=== PATIENT | female | born 1950 | race Caucasian/White ===

== ENCOUNTER 2018-06-29 11:58 | Inpatient (IN) | payer MEDICARE ==
[~2018-06-29] VITALS: Ht 157.5 cm; Wt 71.8 kg
[~2018-06-29 11:58] MED LIST: CALC500T30 PO; CHOL100013 PO; CHOL500016 PO; CRESTOR10 MG PO; LEVO200T5 PO; MULT-658 PO
[2018-06-29] MEDS ORDERED: IV NORMAL SALINE 1,000ML 1,000 ML IV ONE (12:30)
--- NOTE | 2018-06-29 12:44 | PHYS DOC ---
Past History Past Medical History: Dementia, High Cholesterol, Hypothyroid Past Medical History Limited due to dementia Past Surgical History: No Surgical History Past Surgical History Limited due to dementia Smoking: Quit Greater Than 1 Year Alcohol Use: None Drug Use: None Social History Limited due to dementia Adult General Chief Complaint Chief Complaint: FATIGUE HPI HPI Patient is a 68-year-old female who presents to the emergency department with her daughter complaining of feeling tired. According to the patient's daughter, the patient has been having trouble "getting around" and appears to be more tired than usual. The daughter states that she noticed her mother being more fatigued starting yesterday, and today she noticed that she was having difficulty walking. The daughter states that her mother was recently diagnosed with a UTI and had just finished the prescribed antibiotic. Patient states that she is not in any pain. According to the daughter the patient has dementia. She also states that she has hypothyroidism for which she is being treated. Historian was predominantly the daughter. HPI limited due to dementia. Review of Systems Review of Systems Constitutional: Denies fever or chills. Complains of fatigue [] Respiratory: Denies cough or shortness of breath [] Cardiovascular: Denies chest pain and palpitations[] Neurologic: Denies headache, focal weakness or sensory changes; Reports generalized weakness. ROS limited due to dementia. Current Medications Current Medications Current Medications Medications (Trade) Dose Ordered Sig/Nate Start Time Stop Time Status Last Admin Dose Admin Sodium Chloride 1,000 ml @ 1,000 mls/hr 1X ONCE 06/29/18 12:30 06/29/18 13:29 Allergies Allergies Allergies Coded Allergies Type Severity Reaction Last Updated Verified No Known Drug Allergies 06/21/15 No Physical Exam Physical Exam Constitutional: Well developed, well nourished, no acute distress, non-toxic appearance. [] HENT: Normocephalic, atraumatic, oropharynx moist Eyes: PERRL, EOMI. [] Neck: Normal range of motion, no tenderness, supple, no meningeal signs Cardiovascular: Heart rate regular rhythm Lungs & Thorax: Bilateral breath sounds clear to auscultation [] Abdomen: Soft, no tenderness Skin: Warm, dry, no erythema, no rash. [] Extremities: No tenderness, ROM intact, no edema. [] Neurologic: Alert, confused, normal motor function, normal sensory function, no focal deficits noted. [] EKG EKG Sinus tachycardia at 104bpm, Low voltage QRS, No ST elevation. Radiology/Procedures Radiology/Procedures PROCEDURE: CHEST PA & LATERAL Chest, 2 views, 06/29/2018: HISTORY: Dizziness The heart size is normal. There is calcific plaquing of the aorta. The pulmonary vascularity is within normal limits. No pulmonary infiltrate is seen. There is no evidence of pleural fluid. There is a mild thoracolumbar scoliosis. IMPRESSION: No acute cardiopulmonary abnormality is detected. PROCEDURE: CT HEAD WO CONTRAST CT of the head without contrast, 06/29/2018: HISTORY: Dizziness, unsteady gait There is moderate cerebral atrophy. The ventricles are within normal limits in size. There is no shift of the midline structures. There is no evidence of acute intracranial hemorrhage or mass effect. IMPRESSION: 1. Cerebral atrophy. 2. No acute intracranial abnormality is detected. Course & Med Decision Making Course & Med Decision Making Pertinent Labs and Imaging studies reviewed. (See chart for details) Patient with past medical history of dementia presents with her daughter with concern for generalized weakness and fatigue. Daughter reports patient is recently getting over a UTI and has finished course of antibiotic therapy. No history of known trauma. Patient appears at her baseline. Patient able to move all extremities. No focal deficit appreciated. Labs obtained and posted to chart. Hyponatremia and renal insufficiency appreciated. IV fluid hydration provided. Ct head without acute process. CXR clear. Patient requiring admission for further evaluation and treatment. Discussed with Dr. Willis (hospitalist) who is in agreement with admission. Discussed findings and plan with patient and family, who acknowledge understanding and agreement. Dragon Disclaimer Dragon Disclaimer This electronic medical record was generated, in whole or in part, using a voice recognition dictation system. Departure Departure: Impression: Primary Impression: Generalized weakness Additional Impressions: Hyponatremia Acute renal insufficiency Disposition: ADMITTED INPATIENT (tele) Admitting Physician: Shruthi Willis Condition: STABLE Referrals: LUZ ELENA GARCIA APRN (PCP) Problem Qualifiers HEBERT MCGRATH DO Jun 29, 2018 12:44
[2018-06-29 13:01] LABS: BASO % 0 % (0-3); EOS % 0 % (0-3); HEMATOCRIT 43.5 % (36.0-47.0); HEMOGLOBIN 15.2 g/dL (12.0-15.5); LYMPH # 1.1 x10^3/uL (1.0-4.8); LYMPH % 15 % (24-48); MEAN CORPUSCULAR HEMOGLOBIN 31 pg (25-35); MEAN CORPUSCULAR HGB CONC 35 g/dL (31-37); MEAN CORPUSCULAR VOLUME 88 fL (79-100); MONO # 0.3 x10^3/uL (0.0-1.1); MONO % 4 % (0-9); NEUT # 6.4 x10^3uL (1.8-7.7); NEUT % 81 % (31-73); PLATELET COUNT 192 x10^3/uL (140-400); RED BLOOD COUNT 4.97 x10^6/uL (3.50-5.40); RED CELL DISTRIBUTION WIDTH 14.2 % (11.5-14.5); WHITE BLOOD COUNT 7.9 x10^3/uL (4.0-11.0)
--- NOTE | 2018-06-29 13:17 | EKG ---
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
[2018-06-29 13:26] LABS: MAGNESIUM 2.1 mg/dL (1.8-2.4)
--- NOTE | 2018-06-29 13:28 | RAD ---
CT of the head without contrast, 06/29/2018: HISTORY: Dizziness, unsteady gait There is moderate cerebral atrophy. The ventricles are within normal limits in size. There is no shift of the midline structures. There is no evidence of acute intracranial hemorrhage or mass effect. IMPRESSION: 1. Cerebral atrophy. 2. No acute intracranial abnormality is detected. Electronically signed by: Alexander Nolan MD (06/29/2018 1:24 PM) [facility]
--- NOTE | 2018-06-29 13:34 | RAD ---
Chest, 2 views, 06/29/2018: HISTORY: Dizziness The heart size is normal. There is calcific plaquing of the aorta. The pulmonary vascularity is within normal limits. No pulmonary infiltrate is seen. There is no evidence of pleural fluid. There is a mild thoracolumbar scoliosis. IMPRESSION: No acute cardiopulmonary abnormality is detected. Electronically signed by: Alexander Nolan MD (06/29/2018 1:31 PM) [facility]
[2018-06-29 14:26] LABS: ALBUMIN 3.7 g/dL (3.4-5.0); ALBUMIN/GLOBULIN RATIO 0.8 (1.0-1.7); CALCIUM 9.1 mg/dL (8.5-10.1); CREATININE 1.6 mg/dL (0.6-1.0); GFR 32.2; POTASSIUM 4.3 mmol/L (3.5-5.1); TOTAL BILIRUBIN 0.3 mg/dL (0.2-1.0); TOTAL PROTEIN 8.2 g/dL (6.4-8.2)
[2018-06-29 15:46] LABS: COLOR,URINE STRAW
[2018-06-29 15:47] LABS: BACTERIA,URINE 0 /HPF (0-FEW); BILIRUBIN,URINE NEG (NEG); CLARITY,URINE CLEAR; GLUCOSE,URINE NEG (NEG); HYALINE CASTS, URINE MANY /HPF; NITRITE,URINE NEG (NEG); RBC,URINE OCC /HPF (0-2); SQUAMOUS EPITHELIAL CELL,UR FEW /LPF; UROBILINOGEN,URINE 0.2 mg/dL (0.2 mg/dL)
[2018-06-29] MEDS: IV NORMAL SALINE 1,000ML 1,000 ML IV SCH (16:04)
[2018-06-29] MEDS ORDERED: MEMA1CAP3 PO (16:37)
[2018-06-29 21:00] VITALS: BP 116/72
[2018-06-29] MEDS: MEMANTINE 10 MG TABLET. PO SCH (22:31)
[2018-06-29] MEDS: ATORVASTATIN CALCIUM 20 MG TABLET PO SCH (22:31)
[2018-06-29] MEDS: DONEPEZIL HCL 10 MG TABLET PO SCH (22:31)
[2018-06-29 23:14] VITALS: BP 96/65
[2018-06-30] MEDS: LEVOTHYROXINE 100 MCG TABLET PO SCH (05:44)
[2018-06-30] MEDS: IV NORMAL SALINE 1,000ML 1,000 ML IV SCH ×3 (05:44→22:06)
[2018-06-30 06:04] LABS: BASO % 1 % (0-3); EOS % 0 % (0-3); HEMATOCRIT 40.1 % (36.0-47.0); HEMOGLOBIN 13.6 g/dL (12.0-15.5); LYMPH # 1.1 x10^3/uL (1.0-4.8); LYMPH % 20 % (24-48); MEAN CORPUSCULAR HEMOGLOBIN 30 pg (25-35); MEAN CORPUSCULAR HGB CONC 34 g/dL (31-37); MEAN CORPUSCULAR VOLUME 89 fL (79-100); MONO # 0.4 x10^3/uL (0.0-1.1); MONO % 7 % (0-9); NEUT # 4.1 x10^3uL (1.8-7.7); NEUT % 73 % (31-73); PLATELET COUNT 159 x10^3/uL (140-400); RED BLOOD COUNT 4.52 x10^6/uL (3.50-5.40); RED CELL DISTRIBUTION WIDTH 14.1 % (11.5-14.5); WHITE BLOOD COUNT 5.6 x10^3/uL (4.0-11.0)
[2018-06-30 06:09] LABS: CALCIUM 8.3 mg/dL (8.5-10.1); GFR 55.5; POTASSIUM 3.9 mmol/L (3.5-5.1)
[2018-06-30 06:46] VITALS: BP 110/65
[2018-06-30] MEDS: CALCIUM CARBONATE 500 MG TABLET PO SCH (09:51)
[2018-06-30] MEDS: MEMANTINE 10 MG TABLET. PO SCH ×2 (09:51→20:07)
[2018-06-30 10:34] VITALS: BP 107/73
--- NOTE | 2018-06-30 14:04 | HP ---
ADMIT DATE: 06/29/2018 HISTORY OF PRESENT ILLNESS: The patient is a very 68-year-old female patient who was brought to the Emergency Room by her daughter, with her daughter complaining of feeling tired. According to the patient's daughter, the patient has been having trouble getting around and appears to be more tired than usual. She noted that her mother is more fatigued, normally she is able to walk and usually takes her with her to the shopping, but yesterday she was having difficulty walking. She apparently was recently diagnosed with a UTI and was treated with a course of Bactrim-DS and finished the course of treatment. She is not taking any pain medication. She is known to have dementia and she is known to have hypothyroidism for which she is on Synthroid. The patient herself is very demented and does not give any useful information. She was investigated in the Emergency Room and was found to have hyponatremia. Her sodium was 129. She was also somewhat dehydrated. Her creatinine was 1.6 and therefore, she was admitted and started on IV fluid. PAST MEDICAL HISTORY: Significant for hypothyroidism, hyperlipidemia and dementia. PAST SURGICAL HISTORY: Significant for appendectomy as well as colonoscopy. ALLERGIES: She has no known drug allergies. MEDICATIONS: She is currently on following medications: She is on Crestor 10 mg at bedtime. She is on Namzaric 28/10 mg at bedtime, calcium carbonate 500 mg 3 times a day, levothyroxine 200 mcg daily. She is on vitamin D 5000 units once a day, multivitamin, mineral 1 tablet once a day. FAMILY HISTORY: She is the only child, has no brothers or sisters. Both parents are . SOCIAL HISTORY: She is , has 2 daughters. She quit smoking 10 years ago. She drinks a glass of wine once a week. 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 REVIEW OF SYSTEMS: As per history of present illness. PHYSICAL EXAMINATION: GENERAL: On arrival to the Emergency Room, the patient was clearly demented, but without any pallor, jaundice or cyanosis. No lymphadenopathy, no thyromegaly. No jugular venous distension. No lower limb edema. VITAL SIGNS: Her heart rate on arrival showed was 102, blood pressure was 116/72, temperature was 99.5, respiratory rate was 18 and oxygen saturation was 97%. HEENT: Showed normocephalic, atraumatic. NECK: Supple. HEART: Showed normal first and second heart sounds with no gallop, rub or murmur. CHEST: Clear to auscultation. No crepitation or rhonchi. ABDOMEN: Distended, soft, nontender. No guarding or rigidity. No organomegaly. Hernial orifice intact. Bowel sounds normal. NEUROLOGIC: She is demented without any obvious lateralizing sign. All cranial nerves intact. EXTREMITIES: She moves extremities without difficulty. She ambulates without assistance or assistive devices. LABORATORY DATA: On arrival showed a white cell count of 7900, hemoglobin 15, hematocrit 44, MCV 88 and platelet count of 192,000 with normal manual differential. Her chemistry showed a serum sodium of 129, potassium 4.3, chloride 95, bicarbonate 22, anion gap of 12, BUN 15, creatinine 1.6, estimated GFR was 32 mL per minute. Her glucose was 134, calcium was 9.1. Total bilirubin and alkaline phosphatase normal. AST and ALT are slightly elevated. Her ammonia was 10, lactic acid was 1.6. Her magnesium was 2.1. Her total protein was 8.2, albumin was 3.7. ASSESSMENT AND PLAN: The patient is admitted and started on IV fluid in the form of normal saline. We continued her all other medication and I ordered TSH as well as morning cortisol. FINAL ADMISSION DIAGNOSES: Hyponatremia, acute kidney injury, hypothyroidism, hyperlipidemia and dementia. COBY AMES MD DR: FLOR/lamont JOB#: [id number] / [id number]
[2018-06-30 15:27] VITALS: BP 109/74
[2018-06-30] MEDS: ATORVASTATIN CALCIUM 20 MG TABLET PO SCH (20:07)
[2018-06-30] MEDS: DONEPEZIL HCL 10 MG TABLET PO SCH (20:07)
[2018-06-30 20:50] VITALS: BP 127/81
--- NOTE | 2018-06-30 22:35 | PN ---
DATE: 06/30/2018 SUBJECTIVE: The patient is sitting comfortably in her chair, eating her lunch, in no apparent distress. According to her daughter and , she is definitely more awake, alert today and responsive. OBJECTIVE: GENERAL: When I examined her, she looked well and was clearly in no apparent respiratory distress. No pallor, jaundice, cyanosis, or thyromegaly. No jugular venous distension. No limb edema. VITAL SIGNS: Her heart rate was 97, blood pressure was 107/73, temperature was 99.7, respiratory rate was 20, and oxygen saturation was 94%. HEAD, EYES, EARS, NOSE AND THROAT: Showed normocephalic, atraumatic. NECK: Supple. HEART: Showed normal first and second sounds. No gallop, rub or murmur. CHEST: Clear to auscultation. No crepitation or rhonchi. ABDOMEN: Distended, soft, nontender. No guarding or rigidity. No organomegaly. Hernial orifices intact. Bowel sounds normal. NEUROLOGIC: She is demented, but without any obvious lateralizing sign. All cranial nerves intact. She moves extremities without difficulty. She was able to walk to the bathroom today. Her intake was 2259, no output was recorded. LABORATORY DATA: Her lab work this morning showed a white cell count 5600, hemoglobin 13.6, hematocrit 40, MCV 89 and platelet count of 159,000. Her chemistry showed that her serum sodium is slightly low at 131 mEq/L, potassium 3.9, chloride 101, bicarbonate 21, anion gap of 9, BUN 12, creatinine 1, estimated GFR was 55 mL per minute. Her glucose 105 and calcium was 8.3. Her white cell count was 5000. Her urinalysis was essentially unremarkable. The urine was negative for nitrite and leukocyte esterase with only 1-4 WBCs. She has already been treated with a course of Bactrim-DS. My plan is to continue with IV. ASSESSMENT: Marked weakness and tiredness. The patient was found to have hyponatremia and acute kidney injury, creatinine is 1.6. Hypothyroidism, hyperlipidemia, and dementia. PLAN: My plan is to await the results of her TSH as well as her morning cortisol. I will repeat her labs again tomorrow and we will decide on further management. COBY AMES MD DR: FLOR/lamont JOB#: [id number] / [id number]
[2018-07-01 01:44] VITALS: BP 124/72
[2018-07-01 05:40] VITALS: BP 117/77
[2018-07-01] MEDS: LEVOTHYROXINE 100 MCG TABLET PO SCH (05:43)
[2018-07-01 07:02] LABS: CALCIUM 8.4 mg/dL (8.5-10.1); CREATININE 0.8 mg/dL (0.6-1.0); GFR 71.8; POTASSIUM 3.8 mmol/L (3.5-5.1)
[2018-07-01] MEDS: MEMANTINE 10 MG TABLET. PO SCH ×2 (08:54→20:53)
[2018-07-01] MEDS: CALCIUM CARBONATE 500 MG TABLET PO SCH (08:54)
[2018-07-01 10:58] VITALS: BP 105/70
[2018-07-01] MEDS: IV NORMAL SALINE 1,000ML 1,000 ML IV SCH ×2 (11:20→18:04)
--- NOTE | 2018-07-01 14:43 | PDOC ---
SUBJECTIVE: I find the patient sitting up in bed with her spouse at bedside. She is awake and alert but not very verbal. From what I can gather in the chart her cognition does appear to be improved today as she is able to answer questions appropriately. She has not been active only walking back and forth to the toilet. Her tends to answer questions for her and talk over her. She denies any physical complaints however when asked about her mood and possible depression she responded affirmatively. Her vital signs remained stable and labs are normalizing however she does appear to be and admits to some depressed mood. OBJECTIVE: Problems: Problems Medical Problems: (1) Acute renal insufficiency Status: Acute (2) Generalized weakness Status: Acute (3) Hyponatremia Status: Acute Renal function improved with IV fluids B UN is 8 creatinine 0.8. Corrected calcium is 8.96, a.m. cortisol 22.9 TSH 1.374 Vital Signs: Vital Signs Date Time Temp Pulse Resp B/P (MAP) Pulse Ox O2 Delivery O2 Flow Rate FiO2 07/01/18 10:58 98.3 79 20 105/70 (82) 97 Room Air I & O Intake and Output 07/01/18 07:00 Intake Total 1491.54 ml Balance 1491.54 ml Intake Oral 680 ml IV Total 811.54 ml # Voids 4 # Bowel Movements 1 Labs: Laboratory Tests Test 06/29/18 15:05 06/30/18 05:38 07/01/18 06:33 Urine Collection Type U cath Urine Color Straw Urine Clarity Clear Urine pH 5.5 Urine Specific [place] 1.025 Urine Protein 30 mg/dl (NEG-TRACE) Urine Glucose (UA) Neg mg/dL (NEG) Urine Ketones (Stick) Neg mg/dL (NEG) Urine Blood Neg (NEG) Urine Nitrite Neg (NEG) Urine Bilirubin Neg (NEG) Urine Urobilinogen Dipstick 0.2 mg/dL (0.2 mg/dL) Urine Leukocyte Esterase Neg (NEG) Urine RBC Occ /HPF (0-2) Urine WBC 1-4 /HPF (0-4) Urine Squamous Epithelial Cells Few /LPF Urine Bacteria 0 /HPF (0-FEW) Urine Hyaline Casts Many /HPF Urine Mucus Marked /LPF Urine Random Sodium <60 mmol/L (Not Estab.) White Blood Count 5.6 x10^3/uL (4.0-11.0) Red Blood Count 4.52 x10^6/uL (3.50-5.40) Hemoglobin 13.6 g/dL (12.0-15.5) Hematocrit 40.1 % (36.0-47.0) Mean Corpuscular Volume 89 fL (79-100) Mean Corpuscular Hemoglobin 30 pg (25-35) Mean Corpuscular Hemoglobin Concent 34 g/dL (31-37) Red Cell Distribution Width 14.1 % (11.5-14.5) Platelet Count 159 x10^3/uL (140-400) Neutrophils (%) (Auto) 73 % (31-73) Lymphocytes (%) (Auto) 20 % (24-48) Monocytes (%) (Auto) 7 % (0-9) Eosinophils (%) (Auto) 0 % (0-3) Basophils (%) (Auto) 1 % (0-3) Neutrophils # (Auto) 4.1 x10^3uL (1.8-7.7) Lymphocytes # (Auto) 1.1 x10^3/uL (1.0-4.8) Monocytes # (Auto) 0.4 x10^3/uL (0.0-1.1) Eosinophils # (Auto) 0.0 x10^3/uL (0.0-0.7) Basophils # (Auto) 0.0 x10^3/uL (0.0-0.2) Sodium Level 131 mmol/L (136-145) 139 mmol/L (136-145) Potassium Level 3.9 mmol/L (3.5-5.1) 3.8 mmol/L (3.5-5.1) Chloride Level 101 mmol/L (98-107) 107 mmol/L (98-107) Carbon Dioxide Level 21 mmol/L (21-32) 22 mmol/L (21-32) Anion Gap 9 (6-14) 10 (6-14) Blood Urea Nitrogen 12 mg/dL (7-20) 8 mg/dL (7-20) Creatinine 1.0 mg/dL (0.6-1.0) 0.8 mg/dL (0.6-1.0) Estimated GFR (Cockcroft-Gault) 55.5 71.8 Glucose Level 105 mg/dL (70-99) 96 mg/dL (70-99) Calcium Level 8.3 mg/dL (8.5-10.1) 8.4 mg/dL (8.5-10.1) Thyroid Stimulating Hormone (TSH) 1.374 uIU/mL (0.358-3.740) Cortisol AM Sample 22.90 ug/dL (4.3-22.4) Physical Exam: Gen.: No apparent distress awake and alert HEENT: Normocephalic atraumatic mucous membranes moist airway widely patent Neck: Supple and nontender Cardiovascular: Normal S1 and S2 no murmur Pulmonary: Lungs are clear bilaterally no respiratory distress Neuro: Cranial nerves II through XII appear to be intact and there are no lateralizing deficits Psych: Flat affect, admits to depressed mood ASSESSMENT: Generalized weakness Hyponatremia Hypovolemia with acute kidney injury Hypothyroidism: TSH 1.374 Hyperlipidemia Dementia PLAN: Continue to monitor electrolytes and hydrate as necessary Psychiatry consultation to hopefully discern possible mood disorder from baseline dementia status LIZZIE BAEZA DO Jul 01, 2018 14:43
[2018-07-01 14:55] VITALS: BP 113/76
[2018-07-01 20:04] VITALS: BP 134/84
[2018-07-01] MEDS ORDERED: ACETAMINOPHEN 500 MG TABLET PO PRN (20:15)
[2018-07-01] MEDS: ATORVASTATIN CALCIUM 20 MG TABLET PO SCH (20:53)
[2018-07-01] MEDS: DONEPEZIL HCL 10 MG TABLET PO SCH (20:53)
[2018-07-01 23:21] VITALS: BP 119/77
[2018-07-02] MEDS: IV NORMAL SALINE 1,000ML 1,000 ML IV SCH (03:52)
[2018-07-02 05:32] VITALS: BP 137/82
[2018-07-02 06:19] LABS: BASO # 0.1 x10^3/uL (0.0-0.2); BASO % 1 % (0-3); EOS # 0.2 x10^3/uL (0.0-0.7); EOS % 3 % (0-3); HEMATOCRIT 38.6 % (36.0-47.0); HEMOGLOBIN 13.1 g/dL (12.0-15.5); LYMPH # 2.6 x10^3/uL (1.0-4.8); LYMPH % 47 % (24-48); MEAN CORPUSCULAR HEMOGLOBIN 30 pg (25-35); MEAN CORPUSCULAR HGB CONC 34 g/dL (31-37); MEAN CORPUSCULAR VOLUME 88 fL (79-100); MONO # 0.7 x10^3/uL (0.0-1.1); MONO % 12 % (0-9); NEUT # 2.1 x10^3uL (1.8-7.7); NEUT % 37 % (31-73); PLATELET COUNT 227 x10^3/uL (140-400); RED BLOOD COUNT 4.41 x10^6/uL (3.50-5.40); RED CELL DISTRIBUTION WIDTH 14.5 % (11.5-14.5); WHITE BLOOD COUNT 5.7 x10^3/uL (4.0-11.0)
[2018-07-02 06:24] LABS: ALBUMIN 2.9 g/dL (3.4-5.0); ALBUMIN/GLOBULIN RATIO 0.7 (1.0-1.7); CALCIUM 8.3 mg/dL (8.5-10.1); CREATININE 0.7 mg/dL (0.6-1.0); GFR 83.7; POTASSIUM 3.5 mmol/L (3.5-5.1); TOTAL BILIRUBIN 0.4 mg/dL (0.2-1.0); TOTAL PROTEIN 6.8 g/dL (6.4-8.2)
[2018-07-02] MEDS: LEVOTHYROXINE 100 MCG TABLET PO SCH (07:31)
[2018-07-02] MEDS: MEMANTINE 10 MG TABLET. PO SCH (08:43)
[2018-07-02] MEDS: CALCIUM CARBONATE 500 MG TABLET PO SCH (08:43)
[2018-07-02 10:47] VITALS: BP 117/77
[2018-07-02 15:42] VITALS: BP 136/63
--- NOTE | 2018-07-02 17:21 | PDOC ---
SUBJECTIVE: OPENED BY MISTAKE OBJECTIVE: Problems: Problems Medical Problems: (1) Acute renal insufficiency Status: Acute (2) Generalized weakness Status: Acute (3) Hyponatremia Status: Acute Vital Signs: Vital Signs Date Time Temp Pulse Resp B/P (MAP) Pulse Ox O2 Delivery O2 Flow Rate FiO2 07/02/18 15:42 98.0 86 18 136/63 (87) 97 Room Air I & O Intake and Output 07/02/18 07:00 Intake Total 3397.47 ml Output Total 300 ml Balance 3097.47 ml Intake Oral 1420 ml IV Total 1977.47 ml Output Urine Total 300 ml # Voids 4 # Bowel Movements 2 Labs: Laboratory Tests Test 07/01/18 06:33 07/02/18 06:01 Sodium Level 139 mmol/L (136-145) 143 mmol/L (136-145) Potassium Level 3.8 mmol/L (3.5-5.1) 3.5 mmol/L (3.5-5.1) Chloride Level 107 mmol/L (98-107) 109 mmol/L (98-107) Carbon Dioxide Level 22 mmol/L (21-32) 22 mmol/L (21-32) Anion Gap 10 (6-14) 12 (6-14) Blood Urea Nitrogen 8 mg/dL (7-20) 6 mg/dL (7-20) Creatinine 0.8 mg/dL (0.6-1.0) 0.7 mg/dL (0.6-1.0) Estimated GFR (Cockcroft-Gault) 71.8 83.7 Glucose Level 96 mg/dL (70-99) 89 mg/dL (70-99) Calcium Level 8.4 mg/dL (8.5-10.1) 8.3 mg/dL (8.5-10.1) White Blood Count 5.7 x10^3/uL (4.0-11.0) Red Blood Count 4.41 x10^6/uL (3.50-5.40) Hemoglobin 13.1 g/dL (12.0-15.5) Hematocrit 38.6 % (36.0-47.0) Mean Corpuscular Volume 88 fL (79-100) Mean Corpuscular Hemoglobin 30 pg (25-35) Mean Corpuscular Hemoglobin Concent 34 g/dL (31-37) Red Cell Distribution Width 14.5 % (11.5-14.5) Platelet Count 227 x10^3/uL (140-400) Neutrophils (%) (Auto) 37 % (31-73) Lymphocytes (%) (Auto) 47 % (24-48) Monocytes (%) (Auto) 12 % (0-9) Eosinophils (%) (Auto) 3 % (0-3) Basophils (%) (Auto) 1 % (0-3) Neutrophils # (Auto) 2.1 x10^3uL (1.8-7.7) Lymphocytes # (Auto) 2.6 x10^3/uL (1.0-4.8) Monocytes # (Auto) 0.7 x10^3/uL (0.0-1.1) Eosinophils # (Auto) 0.2 x10^3/uL (0.0-0.7) Basophils # (Auto) 0.1 x10^3/uL (0.0-0.2) BUN/Creatinine Ratio 9 (6-20) Total Bilirubin 0.4 mg/dL (0.2-1.0) Aspartate Amino Transf (AST/SGOT) 48 U/L (15-37) Alanine Aminotransferase (ALT/SGPT) 62 U/L (14-59) Alkaline Phosphatase 78 U/L (46-116) Total Protein 6.8 g/dL (6.4-8.2) Albumin 2.9 g/dL (3.4-5.0) Albumin/Globulin Ratio 0.7 (1.0-1.7) LIZZIE BAEZA DO Jul 02, 2018 17:21
--- NOTE | 2018-07-07 15:51 | PDOC3 ---
Discharge Summary Visit Information Date of Admission: Jun 29, 2018 Date of Discharge: Jul 02, 2018 Admitting Diagnosis: generalized weakness, hyponatremia, dehydration, Final Diagnosis Problems Medical Problems: (1) Acute renal insufficiency Status: Acute (2) Generalized weakness Status: Acute (3) Hyponatremia Status: Acute Brief Hospital Course Allergies Allergies Coded Allergies Type Severity Reaction Last Updated Verified No Known Drug Allergies 06/21/15 No Vital Signs Vital Signs Date Time Temp Pulse Resp B/P (MAP) Pulse Ox O2 Delivery O2 Flow Rate FiO2 07/02/18 15:42 98.0 86 18 136/63 (87) 97 Room Air Brief Hospital Course Ms. Vergara is a 68 old female who presented with generalized weakness after being treated for urinary tract infection. Patient has dementia and had decreased by mouth intake and was found to be hyponatremic with a sodium of 129. Her electrolyte abnormality resolved with IV hydration as did her weakness. I find her today sitting up in bed wearing street clothes with spouse at bedside. He reports that her mentation and mood are at baseline and she does smile and appear to have improved mood. She is confused, however she and her spouse are requesting discharge home. She'll be discharged home with her spouse to follow up with their doctor this week. General: No apparent distressed mood greatly improved from yesterday HEENT: Normocephalic/atraumatic mucous membranes pink and moist Neck: Supple and nontender Cardiovascular: Normal S1 and S2 no murmur Pulmonary: Lungs are clear bilaterally with good air movement Extremities: No clubbing cyanosis or edema Discharge Information Condition at Discharge: Improved Follow Up: Weeks Disposition/Orders: D/C to Home Dischare Medications Current Medications Sodium Chloride 1,000 ml @ 1,000 mls/hr 1X ONCE IV Last administered on at 13:27; Start 06/29/18 at 12:30; Stop 06/29/18 at 13:29; Status DC Sodium Chloride 1,000 ml @ 100 mls/hr Q10H IV Last administered on 07/02/18at 03:52; Start 06/29/18 at 16:04; Stop 07/02/18 at 16:11; Status DC Calcium Carbonate/ Glycine (Oscal) 500 mg DAILY PO Last administered on at 08:43; Start 06/30/18 at 09:00; Stop 07/02/18 at 16:11; Status DC Levothyroxine Sodium (Synthroid) 200 mcg DAILY07 PO Last administered on at 07:31; Start 06/30/18 at 07:00; Stop 07/02/18 at 16:11; Status DC Atorvastatin Calcium (Lipitor) 40 mg QHS PO Last administered on 07/01/18at 20: 53; Start 06/29/18 at 21:00; Stop 07/02/18 at 16:11; Status DC Donepezil HCl (Aricept) 10 mg QHS PO Last administered on 07/01/18at 20:53; Start 06/29/18 at 21:00; Stop 07/02/18 at 16:11; Status DC Memantine (Namenda) 10 mg BID PO Last administered on 07/02/18at 08:43; Start at 21:00; Stop 07/02/18 at 16:11; Status DC Acetaminophen (Tylenol) 500 mg PRN Q6HRS PRN PO PAIN / TEMP Last administered on 07/01/18at 20:53; Start 07/01/18 at 20:15; Stop 07/02/18 at 16:11; Status DC Active Scripts Active Reported Namzaric 28 mg-10 mg Capsule (Memantine HCl/Donepezil HCl) 1 Each Cap.spr.24 1 Each PO QHS LAST DOSE GIVEN: DATE: YESTERDAY TIME: AT BEDTIME NEXT DOSE DUE: DATE: TODAY TIME: AT BEDTIME Crestor (Rosuvastatin Calcium) 10 Mg Tablet 10 Mg PO HS LAST DOSE GIVEN: DATE: YESTERDAY TIME: AT BEDTIME NEXT DOSE DUE: DATE: TODAY TIME: AT BEDTIME Vitamin D3 (Cholecalciferol (Vitamin D3)) 5,000 Unit Tablet 5,000 Unit PO LAST DOSE GIVEN: NOT GIVEN THIS ADMISSION NEXT DOSE DUE: RESTART PER HOME SCHEDULE Vitamin D (Cholecalciferol (Vitamin D3)) 1,000 Unit Capsule 1,000 Unit PO LAST DOSE GIVEN: NOT GIVEN THIS ADMISSION NEXT DOSE DUE: RESTART PER HOME SCHEDULE Calcium (Calcium Carbonate) 500 Mg Tablet 500 Mg PO DAILY LAST DOSE GIVEN: DATE: TODAY TIME: AM NEXT DOSE DUE: DATE: TOMORROW TIME: AM Centrum Silver Tablet (Multivits-Min/Fa/Lycopene/Lut) 1 Each Tablet 1 Each PO LAST DOSE GIVEN: NOT GIVEN THIS ADMISSION NEXT DOSE DUE: RESTART PER HOME SCHEDULE Levothyroxine Sodium 200 Mcg Tablet 200 Mcg PO DAILYAC LAST DOSE GIVEN: DATE: TODAY TIME: AM NEXT DOSE DUE: DATE: TOMORROW TIME: AM LIZZIE BAEZA DO Jul 07, 2018 15:51
== END 2018-07-02 16:05 | disposition home or self-care (01) | DRG 640 ==
LOC: ER 11:58 → 1 SOUTH 16:17
PROVIDERS: ADMIT Internal Medicine; ATTEND Internal Medicine
DX: E87.1 Hypo-osmolality and hyponatremia (principal); N17.0 Acute kidney failure with tubular necrosis; E03.9 Hypothyroidism, unspecified; E78.00 Pure hypercholesterolemia, unspecified; E78.5 Hyperlipidemia, unspecified; E86.0 Dehydration; E86.1 Hypovolemia; F03.90 Unspecified dementia, unspecified severity, without behavioral disturbance, psychotic disturbance, mood disturbance, and anxiety; F32.9 Major depressive disorder, single episode, unspecified; Z87.891 Personal history of nicotine dependence; Z87.440 Personal history of urinary (tract) infections; Z90.49 Acquired absence of other specified parts of digestive tract
CPT/HCPCS: 36415; 70450; 71046; 80048; 80053; 81001; 82140; 82533; 82553; 83605; 83735; 84300; 84443; 84484; 85025; 85610; 85730; 93005; 96360; 99285-25; J7030

== ENCOUNTER → 2018-07-15 | Outpatient (CLI) | payer MEDICARE ==
[2018-07-02 15:42] VITALS: BP 136/63
[~2018-07-15] MED LIST changes: +MEMA1CAP3 PO
--- NOTE | 2018-07-15 10:38 | RAD ---
CT ABDOMEN PELVIS WO CONTRAST dated 07/15/2018 9:55 AM Indication: Pain.Epigastric and abdominal pain. Comparison: No comparison is available. Technique: Contiguous axial imaging the head and pelvis performed without the administration of intravenous contrast. One or more of the following individualized dose reduction techniques were utilized for this examination: 1. Automated exposure control 2. Adjustment of the mA and/or kV according to patient size 3. Use of iterative reconstruction technique Findings: Limited images of lung bases are clear. Heart size within normal limits. No pleural or pericardial effusion. Solid abdominal viscera not well evaluated in the absence of contrast material. No apparent attenuation abnormality of the liver or spleen. Gallbladder unremarkable. Pancreas is unremarkable. No peripancreatic inflammatory changes. There is a nodular fullness of the right adrenal gland that measures up to 1.5 cm with Hounsfield value 5. There is also mild fullness of the left adrenal gland. Low-density nodule at the posterior upper pole right kidney with Hounsfield value of 6. There is mild scarring at the right kidney upper pole. No renal stone or hydronephrosis. Unopacified GI tract normal in caliber and contour. No focal bowel wall thickening. Scattered diverticula throughout the colon. No paracolonic inflammatory changes. Abdominal aorta normal in caliber. No ascites or lymphadenopathy. No inflammatory changes in the mesentery. Images the pelvis show nondistended urinary bladder. Uterus and adnexa are unremarkable. No free pelvic fluid or pelvic lymphadenopathy. Bone windows show no acute findings. Mild multilevel spondylosis. IMPRESSION: 1. No acute abnormality of abdomen or pelvis. 2. Diverticulosis. 3. Low-density enlargement of the bilateral adrenal glands, likely related to small adenomas or adenomatous hyperplasia. 4. Low-density lesion at the upper pole right kidney, likely cyst. Electronically signed by: Ehsan Winn MD (07/15/2018 10:35 AM) [facility]
== END | disposition home or self-care (01) ==
LOC: CT 09:49
PROVIDERS: ATTEND Physician Assistant Medical
DX: K57.90 Diverticulosis of intestine, part unspecified, without perforation or abscess without bleeding (principal); N28.89 Other specified disorders of kidney and ureter; M47.896 Other spondylosis, lumbar region; E27.8 Other specified disorders of adrenal gland
CPT/HCPCS: 74176

== ENCOUNTER → 2018-07-19 | Outpatient (CLI) | payer MEDICARE ==
[2018-07-02 15:42] VITALS: BP 136/63
[~2018-07-19] VITALS: Ht 157.5 cm; Wt 68.9 kg
[~2018-07-19] MED LIST changes: +SINCALIDE 1.38 MCG in IV NORMAL SALINE 50ML 30 ML IV ONE
--- NOTE | 2018-07-19 10:40 | RAD ---
EXAM: Abdomen sonogram. HISTORY: Epigastric pain. TECHNIQUE: Sonographic imaging of the abdomen was performed. COMPARISON: CT dated 07/15/2018. FINDINGS: The liver is normal in size. No focal hepatic lesion is seen. There is slight increased hepatic parenchymal echogenicity due to steatosis. The common bile duct is normal in caliber. The gallbladder is unremarkable. The right kidney measures 9.1 cm [id number] and contains a 2.1 cm cyst. There is no hydronephrosis. The pancreas, inferior vena cava and aorta are partially obscured due to bowel gas. The exam is limited due to respiratory motion. IMPRESSION: 1. Hepatic steatosis. 2. Small right renal cyst. 3. Limited exam due to respiratory motion. Electronically signed by: Milagro Griffith MD (07/19/2018 10:37 AM) [facility]
--- NOTE | 2018-07-19 13:04 | RAD ---
EXAM: Nuclear hepatobiliary scan. HISTORY: Pain. TECHNIQUE: Following intravenous administration of 5.5 mCi Tc 99m Choletec, anterior images of the abdomen were obtained at five minute intervals through one hour. Subsequently, 1.3 mcg CCK was administered and additional images to assess gallbladder ejection fraction were obtained. FINDINGS: There is prompt radiotracer uptake by the liver. No focal defect is seen. There is normal excretion into the biliary tree. The gallbladder is visualized within 20 minutes and there is free flow into the duodenum. The gallbladder ejection fraction is 6.7%. IMPRESSION: Severely decreased gallbladder ejection fraction of 6.7%. Electronically signed by: Milagro Griffith MD (07/19/2018 1:01 PM) [facility]
== END | disposition home or self-care (01) ==
LOC: US 08:23
PROVIDERS: ATTEND Internal Medicine Gastroenterology
DX: K76.0 Fatty (change of) liver, not elsewhere classified (principal); N28.1 Cyst of kidney, acquired; E78.00 Pure hypercholesterolemia, unspecified; E03.9 Hypothyroidism, unspecified; Z87.440 Personal history of urinary (tract) infections; Z87.891 Personal history of nicotine dependence
CPT/HCPCS: 76705; 78226; 96374; 96375; A9537; J2805

== ENCOUNTER 2019-09-26 15:40 | Inpatient (IN) | payer MEDICARE ==
[~2019-09-26] VITALS: Ht 162.6 cm; Wt 64.9 kg
[~2019-09-26 15:40] MED LIST changes: -SINCALIDE 1.38 MCG in IV NORMAL SALINE 50ML 30 ML IV ONE
--- NOTE | 2019-09-26 16:27 | EKG ---
[address] [address] Test Date: 2019-09-26 Test Time: 16:22:19 Pat Name: JOCELIN MORAN Department: Room: Gender: F Cathode Maker: KARO : 1950 Requested By: KAYCE SUTTON Order Number: [id number] Reading MD: Measurements Intervals [place] Rate: 69 P: 48 SC: 134 QRS: 60 QRSD: 84 T: 66 QT: 410 QTc: 441 Interpretive Statements SINUS RHYTHM NORMAL ECG RI6.01 Compared to ECG 06/29/2018 13:15:36 Sinus tachycardia no longer present
[2019-09-26 16:47] LABS: AMPHETAMINE/METHAMPHETAMINE NEG (NEG); BARBITURATES NEG (NEG); BENZODIAZEPINES NEG (NEG); CANNABINOIDS NEG (NEG); COCAINE NEG (NEG); METHADONE NEG (NEG); OPIATES NEG (NEG); PHENCYCLIDINE NEG (NEG)
[2019-09-26 16:51] LABS: BACTERIA,URINE MANY /HPF (0-FEW); BILIRUBIN,URINE NEG (NEG); COLOR,URINE AMBER; GLUCOSE,URINE NEG (NEG); GRANULAR CASTS,URINE OCC /HPF; HYALINE CASTS, URINE FEW /HPF; NITRITE,URINE POS (NEG); SQUAMOUS EPITHELIAL CELL,UR MOD /LPF; UROBILINOGEN,URINE 1 mg/dL (0.2 mg/dL); WBC,URINE >40 /HPF (0-4)
[2019-09-26 16:52] LABS: CLARITY,URINE TURBID
--- NOTE | 2019-09-26 17:07 | RAD ---
Single view chest dated 09/26/2019: Comparison: 06/29/2018 Clinical Indication: Weakness. Findings: Single upright portable exam of the chest was performed. Heart size and mediastinal contours are within normal limits given technique. The lungs are clear without evidence of focal consolidation. Vascular interstitium is within normal limits. Impression:: No acute radiographic abnormality. Electronically signed by: Ehsan Winn MD (09/26/2019 5:04 PM) [facility]
[2019-09-26 17:19] LABS: BASO # 0.1 x10^3/uL (0.0-0.2); BASO % 1 % (0-3); EOS # 0.1 x10^3/uL (0.0-0.7); EOS % 1 % (0-3); HEMATOCRIT 46.3 % (36.0-47.0); HEMOGLOBIN 15.4 g/dL (12.0-15.5); LYMPH # 3.2 x10^3/uL (1.0-4.8); LYMPH % 38 % (24-48); MEAN CORPUSCULAR HEMOGLOBIN 30 pg (25-35); MEAN CORPUSCULAR HGB CONC 33 g/dL (31-37); MEAN CORPUSCULAR VOLUME 90 fL (79-100); MONO # 0.7 x10^3/uL (0.0-1.1); MONO % 8 % (0-9); NEUT # 4.4 x10^3uL (1.8-7.7); NEUT % 52 % (31-73); PLATELET COUNT 265 x10^3/uL (140-400); RED BLOOD COUNT 5.14 x10^6/uL (3.50-5.40); RED CELL DISTRIBUTION WIDTH 13.7 % (11.5-14.5); WHITE BLOOD COUNT 8.4 x10^3/uL (4.0-11.0)
[2019-09-26 17:33] LABS: ALBUMIN 3.9 g/dL (3.4-5.0); CREATININE 0.9 mg/dL (0.6-1.0); GFR 62.5; POTASSIUM 3.6 mmol/L (3.5-5.1); TOTAL BILIRUBIN 0.4 mg/dL (0.2-1.0); TOTAL PROTEIN 7.8 g/dL (6.4-8.2)
--- NOTE | 2019-09-26 17:54 | PHYS DOC ---
Past History Past Medical History: Dementia, High Cholesterol, Hypothyroid (KAYCE SUTTON MD) Past Surgical History: No Surgical History (KAYCE SUTTON MD) Smoking: Quit Greater Than 1 Year Alcohol Use: None Drug Use: None (KAYCE SUTTON MD) Adult General Chief Complaint Chief Complaint: PSYCH EVALUATION HPI HPI Patient is a 69-year-old female presenting with chief complaint of here for [facility] clearance for [facility] evaluation. Patient is a history of dementia is coming from home has been increasingly combative throwing things yelling swearing harder to control with her . She has had decreased energy the past few weeks they're worried that she might have a urinary tract infection as well but this increased agitation is been occurring all long-standing basis. She saw a neurologist referred to the emergency room for [facility] psych evaluation. (KAYCE SUTTON MD) Review of Systems Review of Systems Limited by dementia but no definite fever patient did have some dry heaving a couple of days ago but no active vomiting decreased by mouth intake is noted patient denies pain at this time (KAYCE SUTTON MD) Current Medications Current Medications Current Medications Medications (Trade) Dose Ordered Sig/Nate Start Time Stop Time Status Last Admin Dose Admin Ceftriaxone Sodium 1 gm/ Sodium Chloride 50 ml @ 100 mls/hr 1X ONCE 09/26/19 18:00 09/26/19 18:29 (KAYCE SUTTON MD) Allergies Allergies Allergies Coded Allergies Type Severity Reaction Last Updated Verified No Known Drug Allergies 06/21/15 No (KAYCE SUTTON MD) Physical Exam Physical Exam Constitutional: Well developed, well nourished, no acute distress, non-toxic appearance. [] HENT: Normocephalic, atraumatic, bilateral external ears normal, oropharynx moist, no oral exudates, nose normal. [] Eyes: PERRLA, EOMI, conjunctiva normal, no discharge. [] Neck: Normal range of motion, no tenderness, supple, no stridor. [] Cardiovascular:Heart rate regular rhythm, no murmur [] Lungs & Thorax: Bilateral breath sounds clear to auscultation [] Abdomen: Bowel sounds normal, soft, no tenderness, no masses, no pulsatile masses. [] Skin: Warm, dry, no erythema, no rash. [] Back: No tenderness, no CVA tenderness. [] Extremities: No tenderness, no cyanosis, no clubbing, ROM intact, no edema. [] Neurologic: Alert and oriented X 2, normal motor function, normal sensory function, no focal deficits noted. [] Psychologic: Affect normal, judgement normal, mood normal. []Overall, cooperative (KAYCE SUTTON MD) Current Patient Data Lab Results Laboratory Tests Test 09/26/19 16:02 09/26/19 17:00 Urine Collection Type Unknown Urine Color Katelynn Urine Clarity Turbid Urine pH 5.5 Urine Specific [place] >=1.030 Urine Protein Trace (NEG-TRACE) Urine Glucose (UA) Neg mg/dL (NEG) Urine Ketones (Stick) Neg mg/dL (NEG) Urine Blood Trace (NEG) Urine Nitrite Pos (NEG) Urine Bilirubin Neg (NEG) Urine Urobilinogen Dipstick 1 mg/dL (0.2 mg/dL) Urine Leukocyte Esterase Small (NEG) Urine RBC 3-5 /HPF (0-2) Urine WBC >40 /HPF (0-4) Urine Squamous Epithelial Cells Mod /LPF Urine Bacteria Many /HPF (0-FEW) Urine Hyaline Casts Few /HPF Urine Granular Casts Occ /HPF Urine Mucus Marked /LPF Urine Opiates Screen Neg (NEG) Urine Methadone Screen Neg (NEG) Urine Barbiturates Neg (NEG) Urine Phencyclidine Screen Neg (NEG) Urine Amphetamine/Methamphetamine Neg (NEG) Urine Benzodiazepines Screen Neg (NEG) Urine Cocaine Screen Neg (NEG) Urine Cannabinoids Screen Neg (NEG) Urine Ethyl Alcohol Neg (NEG) White Blood Count 8.4 x10^3/uL (4.0-11.0) Red Blood Count 5.14 x10^6/uL (3.50-5.40) Hemoglobin 15.4 g/dL (12.0-15.5) Hematocrit 46.3 % (36.0-47.0) Mean Corpuscular Volume 90 fL (79-100) Mean Corpuscular Hemoglobin 30 pg (25-35) Mean Corpuscular Hemoglobin Concent 33 g/dL (31-37) Red Cell Distribution Width 13.7 % (11.5-14.5) Platelet Count 265 x10^3/uL (140-400) Neutrophils (%) (Auto) 52 % (31-73) Lymphocytes (%) (Auto) 38 % (24-48) Monocytes (%) (Auto) 8 % (0-9) Eosinophils (%) (Auto) 1 % (0-3) Basophils (%) (Auto) 1 % (0-3) Neutrophils # (Auto) 4.4 x10^3uL (1.8-7.7) Lymphocytes # (Auto) 3.2 x10^3/uL (1.0-4.8) Monocytes # (Auto) 0.7 x10^3/uL (0.0-1.1) Eosinophils # (Auto) 0.1 x10^3/uL (0.0-0.7) Basophils # (Auto) 0.1 x10^3/uL (0.0-0.2) Sodium Level 145 mmol/L (136-145) Potassium Level 3.6 mmol/L (3.5-5.1) Chloride Level 107 mmol/L (98-107) Carbon Dioxide Level 25 mmol/L (21-32) Anion Gap 13 (6-14) Blood Urea Nitrogen 10 mg/dL (7-20) Creatinine 0.9 mg/dL (0.6-1.0) Estimated GFR (Cockcroft-Gault) 62.5 BUN/Creatinine Ratio 11 (6-20) Glucose Level 96 mg/dL (70-99) Calcium Level 9.0 mg/dL (8.5-10.1) Magnesium Level 2.0 mg/dL (1.8-2.4) Total Bilirubin 0.4 mg/dL (0.2-1.0) Aspartate Amino Transferase (AST) 24 U/L (15-37) Alanine Aminotransferase (ALT) 25 U/L (14-59) Alkaline Phosphatase 123 U/L (46-116) H Troponin I Quantitative < 0.017 ng/mL (0-0.055) Total Protein 7.8 g/dL (6.4-8.2) Albumin 3.9 g/dL (3.4-5.0) Albumin/Globulin Ratio 1.0 (1.0-1.7) (KAYCE SUTTON MD) EKG EKG [] (KAYCE SUTTON MD) Radiology/Procedures Radiology/Procedures [] Impressions: Findings: Single upright portable exam of the chest was performed. Heart size and mediastinal contours are within normal limits given technique. The lungs are clear without evidence of focal consolidation. Vascular interstitium is within normal limits. Impression:: No acute radiographic abnormality. Electronically signed by: Ehsan Winn MD (09/26/2019 5:04 PM) [facility] DICTATED AND SIGNED BY: EHSAN WINN MD DATE: 09/26/19 1032 CC: KAYCE SUTTON MD; FLETCHER CARLSON ~ (KAYCE SUTTON MD) Course & Med Decision Making Course & Med Decision Making Pertinent Labs and Imaging studies reviewed. (See chart for details) []Noted UTI Keflex was ordered for this. TSH is currently pending. 69-year-old female with history of dementia presenting with increased agitation patient is a UTI but it sounds like her symptoms are more consistent with wor sening dementia not safe to be at home signout to Dr. Frost telemetry psych consult is pending (KAYCE SUTTON MD) Course & Med Decision Making Dr. Henderson's note Received patient at 1800 H&P. Patient remained in stable condition in the emergency department. [facility] who found that she is 69-year-old female with progressive major neurocognitive who is experiencing worsening behavioral disturbance to the point that her family is h aving difficulty controlling her behavior. Patient is need of acute stabilization with admission to a psychiatry inpatient unit. Patient was determined to be medically stable. And there is no evidence of systemic toxicity from the urinary tract infection. Will admit her to [facility] and continue the antibiotics for the urinary tract infection. Unfortunately due to no medical power of civil litigation attorney, [facility] will not accept the patient. Admitting her to the medical floor under the hospitalist service for treatment of the urinary tract infection along with the Alzheimer's dementia with behavioral changes. (DARRIAN HENDERSON DO) Dragon Disclaimer Dragon Disclaimer This electronic medical record was generated, in whole or in part, using a voice recognition dictation system. (KAYCE SUTTON MD) Departure Departure: Impression: Primary Impression: Dementia Additional Impressions: Major neurocognitive disorder due to Alzheimer's disease Urinary tract infection Dementia with behavioral disturbance Disposition: ADMITTED INPATIENT Admitting Physician: Shruthi Willis, Other (DARRIAN HENDERSON DO) Condition: IMPROVED Referrals: FLETCHER CARLSON (PCP) Problem Qualifiers Primary Impression: Dementia Dementia type: unspecified type Dementia behavioral disturbance: with b ehavioral disturbance Qualified Codes: F03.91 - Unspecified dementia with behavioral disturbance Additional Impressions: Urinary tract infection Urinary tract infection type: site unspecified Hematuria presence: without hematuria Qualified Codes: N39.0 - Urinary tract infection, site not specified Dementia with behavioral disturbance Dementia type: unspecified type Qualified Codes: F03.91 - Unspecified dementia with behavioral disturbance KAYCE SUTOTN MD Sep 26, 2019 17:53 DARRIAN HENDERSON DO Sep 26, 2019 20:39
[2019-09-26] MEDS ORDERED: CEPHALEXIN 250 MG CAPSULE PO ONE (18:30)
[2019-09-26] MEDS ORDERED: ACETAMINOPHEN 325 MG TABLET PO PRN (21:45)
[2019-09-26] MEDS ORDERED: ONDANSETRON PF 4 MG/2 ML VIAL. IV PRN (21:45)
--- NOTE | 2019-09-26 22:26 | NUR ---
The patient, JOCELIN MORAN, 69 y/o, F admitted by COBY AMES MD, was given written information regarding hospital policies, unit procedures and contact persons. Valuables were checked and logged. Call light in place. Will continue to monitor.
[2019-09-26 22:42] VITALS: BP 129/82
[2019-09-26] MEDS ORDERED: ASPI81TA59 PO (22:55)
[2019-09-26] MEDS ORDERED: LEVO75TA5 PO (22:56)
[2019-09-26] MEDS ORDERED: DULO60CA6 PO (23:10)
--- NOTE | 2019-09-26 23:27 | NUR ---
Patient states that patient has been hallucinating talking to people that aren't there. Patient also screams at TV and screams at accusing of having an affair with people on tv. Sent up psych evdat to [facility].
[2019-09-27 06:02] VITALS: BP 133/85
[2019-09-27] MEDS ORDERED: LEVOTHYROXINE 75 MCG TABLET PO SCH (07:00)
[2019-09-27] MEDS ORDERED: OLANZapine 2.5 MG TABLET PO PRN (07:30)
[2019-09-27] MEDS ORDERED: MULTIVITAMIN I-VITE TABLET. PO SCH (09:00)
[2019-09-27] MEDS ORDERED: CHOLECALCIFEROL (VITAMIN D3) 1,000 UNIT TABLET PO SCH (09:00)
[2019-09-27] MEDS ORDERED: ASPIRIN 81 MG TAB.CHEW PO SCH (09:00)
[2019-09-27 11:00] VITALS: BP 133/85
[2019-09-27] MEDS ORDERED: CEFD300C PO (12:05)
--- NOTE | 2019-09-27 12:36 | HP ---
ADMIT DATE: 09/27/2019 HISTORY OF PRESENT ILLNESS: The patient is a 69-year-old female patient, who was brought by her to the Emergency Room for medical clearance to be admitted to the Geropsych Unit. She has history of dementia, came from home, has been increasingly combative, throwing things, yelling, swearing, harder to control. She has also had decreased energy in the past 2 weeks. The family are worried that she might have urinary tract infection as well; however, this agitation has been going on for a while now. She actually saw her neurologist, who referred her to the Emergency Room for inpatient psychiatric stabilization. PAST MEDICAL HISTORY: Significant for hyperlipidemia, hypothyroidism and dementia. PAST SURGICAL HISTORY: Significant for appendectomy as well as colonoscopy. ALLERGIES: She is allergic to SULFA DRUGS. MEDICATIONS: She is currently on following medications: She is on Crestor 10 mg at bedtime, aspirin 81 mg once a day, duloxetine 60 mg daily. She is on Namzaric 28/10 mg capsules once a day at bedtime, levothyroxine 75 mcg once a day, cholecalciferol (vitamin D3) 2000 International Units once a day, multivitamin with mineral 1 tablet once a day. FAMILY HISTORY: She is an only child and has no brothers or sisters. Both parents are . SOCIAL HISTORY: She is , has 2 daughters. She quit smoking about 10 years ago. She drinks a glass of wine once a week. 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 REVIEW OF SYSTEMS: As per history of present illness. PHYSICAL EXAMINATION: GENERAL: On arrival to the Emergency Room, she looked well and was clearly in no apparent respiratory distress. No pallor, jaundice, cyanosis or thyromegaly. No jugular venous distention. No lower limb edema. VITAL SIGNS: Her heart rate was 77, blood pressure was 129/82, temperature was 98.4, respiratory rate was 18 and oxygen saturation was 97%. HEAD, EYES, EARS, NOSE AND THROAT: Showed normocephalic, atraumatic. NECK: Supple. HEART: Showed normal first and second heart sounds with no gallop, rub or murmur. CHEST: Clear to auscultation. No crepitation or rhonchi. ABDOMEN: Distended, soft, nontender. No guarding or rigidity. No organomegaly. All hernial orifice intact. Bowel sounds normal. NEUROLOGIC: She was demented, but without any obvious lateralizing sign. All cranial nerves intact. EXTREMITIES: She moves extremities without difficulty. She ambulates without assistance or assistive devices. LABORATORY DATA: Showed a white cell count of 8400, hemoglobin 15, hematocrit 46, MCV 90 and platelet count 265,000 with normal manual differential. Her chemistry showed a serum sodium of 145, potassium 3.6, chloride 107, bicarbonate 25, anion gap of 10, BUN 10, creatinine 0.9, estimated GFR was 62 mL per minute. Her glucose was 96, calcium was 9, her magnesium was 2.3. Total bilirubin, AST, ALT are normal. Alkaline phosphatase slightly elevated. Total protein was 7.8, albumin was 3.9. Her TSH was 0.355. Her urinalysis showed the urine was cindy, turbid with a pH of 5.5, specific gravity of 1.030. There was a trace of protein. The urine was negative for glucose and ketones, trace of blood, positive for nitrite. There is small amount of leukocyte esterase, 3-5 rbc's, more than 40 wbc's and many bacteria. Her toxic screen was negative and her chest x-ray showed that there is no acute radiographic abnormality. ASSESSMENT AND PLAN: The patient was admitted to be treated for urinary tract infection. She was started on intravenous Rocephin after obtaining the urine and blood for culture and sensitivity. Meanwhile, we will continue all her other medications including her levothyroxine and Crestor. COBY AMES MD DR: FLOR/lamont JOB#: [id number] / [id number]
--- NOTE | 2019-09-27 13:11 | NUR ---
Patient D/C to [facility] room 226. Patient's IV is removed. Bedside report given to Pat RN. All belongings are taken with patient at time of D/C. Patient is escorted to [facility] by staff. Patient is stable at time of D/C.
[2019-09-27] MEDS ORDERED: DONE10TA61 PO (14:42)
[2019-09-27] MEDS ORDERED: MEMA10TA PO (14:59)
[2019-09-27] MEDS ORDERED: OLAN5TAB7 PO (15:05)
[2019-09-27] MEDS ORDERED: ATORVASTATIN CALCIUM 10 MG TABLET. PO SCH (21:00)
[2019-09-27] MEDS ORDERED: MEMANTINE 10 MG TABLET. PO SCH (21:00)
[2019-09-28] MEDS ORDERED: LEVOTHYROXINE 75 MCG TABLET PO SCH (06:00)
== END 2019-09-27 13:05 | DRG 690 ==
LOC: ER 15:40 → 1 SOUTH 21:30
PROVIDERS: ADMIT Internal Medicine; ATTEND Internal Medicine
DX: N39.0 Urinary tract infection, site not specified (principal); F02.81 Dementia in other diseases classified elsewhere, unspecified severity, with behavioral disturbance; E03.9 Hypothyroidism, unspecified; E78.00 Pure hypercholesterolemia, unspecified; E78.5 Hyperlipidemia, unspecified; G30.9 Alzheimer's disease, unspecified; Z87.891 Personal history of nicotine dependence; Z79.899 Other long term (current) drug therapy; Z90.49 Acquired absence of other specified parts of digestive tract
CPT/HCPCS: 36415; 71045; 80053; 80307; 81001; 83735; 84443; 84484; 85025; 87086; 93005; G0480; J0696; 99285-25

== ENCOUNTER 2019-09-27 14:02 | Inpatient (IN) | payer MEDICARE ==
[~2019-09-27] VITALS: Ht 160 cm; Wt 66.2 kg
[~2019-09-27 14:02] MED LIST changes: +ASPI81TA59 PO; +CEFD300C PO; +DULO60CA6 PO; +LEVO75TA5 PO
[2019-09-27 14:15] VITALS: BP 142/78
[2019-09-27] MEDS ORDERED: DONE10TA61 PO (14:42)
[2019-09-27] MEDS ORDERED: MEMA10TA PO (14:59)
[2019-09-27] MEDS ORDERED: OLAN5TAB7 PO (15:05)
[2019-09-27] MEDS ORDERED: ACETAMINOPHEN 325 MG TABLET PO PRN (15:30)
[2019-09-27] MEDS ORDERED: METHYL SALICYLATE/MENTHOL TOPICAL OINTMENT 57GM TUBE. TP PRN (15:30)
[2019-09-27] MEDS ORDERED: MAGNESIUM HYDROXIDE 2,400 MG/30 ML ORAL.SUSP. PO PRN (15:30)
[2019-09-27] MEDS ORDERED: MAG HYDROX/AL HYDROX/SIMETH 30 ML ORAL.SUSP PO PRN (15:30)
[2019-09-27 15:54] VITALS: BP 104/70
--- NOTE | 2019-09-27 16:33 | NUR ---
Admission Note with Justification for Admission to [facility] Patient admitted to [facility] for protective oversight for emergency stabilization of acute psychiatric crisis. Pt admitted from: [address] [place] [address] Mode of arrival: w/c Accompanied By: [facility] Staff Precipitating behaviors that initiated intake and admission: Dementia at home, increased aggression, throwing items, refusing to eat, refusing meds. Description of failure of out patient attempts at stabilization in previous setting list behavior and medication trials: Has been seen by Dr. Willis for 2 years for dementia management, no longer able to manage at home. Behaviors and assessment findings upon admission: Pt. is very anxious, ambulating around halls, will not sit or stay in one spot for any assessment, or vital signs. Confused, wanting to go home. Oriented to self only. Plan: Admit for protective oversight for adjustment and stabilization of medications, behaviors and mood. Intense treatment regimen including groups, medication adjustments, therapy, consistent regimen for ADL's, self care, and sleep hygiene. Daily monitoring by Inpatient staff, Psychiatry, and Medical Physician. Addendum: 09/27/19 at 1641 by ARCELIA AGRAWAL RN RN Arrived to unit for admission at 13:45.
[2019-09-27] MEDS ORDERED: NON FORMULARY ITEM (Memantine HCl/Donepezil HCl (Namzaric 28 mg-10 mg Capsule) 1 EACH) PO SCH (21:00)
--- NOTE | 2019-09-27 21:19 | HP ---
ADMIT DATE: 09/27/2019 PSYCHIATRIC ADMISSION HISTORY AND EVALUATION. IDENTIFYING DATA: The patient is a 69-year-old female who was initially referred to the [facility] from home on account of increasing confusion, agitation, increasingly aggressive, throwing things at staff, refusing to eat, and refusing to take her medications. All of this had been worsening for the past 2 months. The patient had failed outpatient psychiatric interventions, was brought to the Emergency Room, found to have a UTI, admitted on the Medical/Surgical unit ICU, stabilized and then referred to us as the behaviors persisted with worsening confusion. The patient was seen individually on the evening of 09/27/2019. Discussed with nursing staff, reviewed the chart. CHIEF COMPLAINT: "I don't know." The patient is quite confused, oriented just to herself. HISTORY OF PRESENT ILLNESS: The patient has a history of dementia, Alzheimer's vascular type. The patient has been increasingly depressed, anxious, somewhat delusional with sleep and appetite changes and marked physical aggression. No active suicidal or homicidal ideation. No clear history of bipolar disorder. PAST PSYCHIATRIC HISTORY: As noted above. PAST MEDICAL HISTORY: Hypothyroidism; coronary artery disease; hyperlipidemia; UTI, treated on Rocephin. DRUG ALLERGIES: Negative. PAST SURGICAL HISTORY: Status post appendectomy, cholecystectomy. CURRENT PSYCHOTROPICS: Aricept 10 mg a day, Namenda 10 mg b.i.d. FAMILY HISTORY: Noncontributory. SOCIAL HISTORY: No history of alcohol, drug abuse, physical, sexual or elder abuse. She is not known to be a perpetrator. REACTION TO HOSPITALIZATION: The patient oblivious of this. ASSETS: Supportive family. MENTAL STATUS EXAMINATION: The patient was seen individually on the evening of 09/27/2019. She is oriented to herself. Insight, judgment, recent and remote memory, attention, concentration, fund of knowledge poor, consistent with her diagnoses. IMPRESSION: Major neurocognitive disorder; Alzheimer's, vascular with delusion; depression; behavioral disturbance; anxiety disorder, unspecified; impulse control disorder, unspecified; urinary tract infection; rest diagnoses as above. PLAN: Admit to Geropsychiatry Unit at [facility]. I will see the patient daily individually from a psychiatric standpoint. Medical followup with Dr. Willis. The patient is currently on Cymbalta 60 mg a day, Namenda 10 b.i.d., Aricept 10 mg a day. We will continue all of this and we have added Zyprexa p.r.n. We will observe baseline, then make further changes as clinically indicated. MAN Arya VILLALBA MD DR: LE/lamont JOB#: [id number] / [id number]
[2019-09-27] MEDS: MEMANTINE 10 MG TABLET. PO SCH (22:12)
[2019-09-27] MEDS: DONEPEZIL HCL 10 MG TABLET PO SCH (22:12)
[2019-09-27] MEDS: CEFDINIR 300 MG CAPSULE PO SCH (22:12)
[2019-09-27] MEDS: ATORVASTATIN CALCIUM 20 MG TABLET PO SCH (22:12)
--- NOTE | 2019-09-28 02:49 | NUR ---
Pt resting in bed now, meds taken whole with prompting. She is very confused and disorganized with some irritability but has been fairly cooperative.
[2019-09-28 06:11] VITALS: BP 131/87
[2019-09-28] MEDS: LEVOTHYROXINE 75 MCG TABLET PO SCH (06:19)
[2019-09-28 07:24] LABS: BASO # 0.1 x10^3/uL (0.0-0.2); BASO % 1 % (0-3); EOS # 0.2 x10^3/uL (0.0-0.7); EOS % 2 % (0-3); HEMATOCRIT 45.9 % (36.0-47.0); HEMOGLOBIN 15.3 g/dL (12.0-15.5); LYMPH % 49 % (24-48); MEAN CORPUSCULAR HEMOGLOBIN 30 pg (25-35); MEAN CORPUSCULAR HGB CONC 33 g/dL (31-37); MEAN CORPUSCULAR VOLUME 90 fL (79-100); MONO # 0.7 x10^3/uL (0.0-1.1); MONO % 8 % (0-9); NEUT # 3.2 x10^3uL (1.8-7.7); NEUT % 39 % (31-73); PLATELET COUNT 252 x10^3/uL (140-400); RED BLOOD COUNT 5.09 x10^6/uL (3.50-5.40); WHITE BLOOD COUNT 8.1 x10^3/uL (4.0-11.0)
[2019-09-28 07:38] LABS: ALBUMIN 3.7 g/dL (3.4-5.0); CALCIUM 9.7 mg/dL (8.5-10.1); CREATININE 0.9 mg/dL (0.6-1.0); GFR 62.5; MAGNESIUM 2.1 mg/dL (1.8-2.4); POTASSIUM 4.2 mmol/L (3.5-5.1); TOTAL BILIRUBIN 0.4 mg/dL (0.2-1.0); TOTAL PROTEIN 7.5 g/dL (6.4-8.2)
[2019-09-28] MEDS: ASPIRIN 81 MG TAB.CHEW PO SCH (10:04)
[2019-09-28] MEDS: CEFDINIR 300 MG CAPSULE PO SCH ×2 (10:04→20:31)
[2019-09-28] MEDS: CHOLECALCIFEROL (VITAMIN D3) 1,000 UNIT TABLET PO SCH (10:04)
[2019-09-28] MEDS: LACTOBACILLUS RHAMNOSUS GG 1 CAPSULE. PO SCH ×2 (10:04→20:31)
[2019-09-28] MEDS: MULTIVITAMIN with MINERAL TABLET. PO SCH (10:05)
[2019-09-28 10:31] LABS: THYROID STIM HORMONE (TSH) 0.407 uIU/mL (0.358-3.740)
[2019-09-28 12:10] LABS: THYROXINE 8.8 ug/dL (4.5-12.0)
[2019-09-28 16:21] VITALS: BP 109/73
--- NOTE | 2019-09-28 19:59 | NUR ---
Has been calm and cooperative today. Extremely demented, confused, memory poor. Did not recognize her daughters when they came to visit. Her dentures were brought and left here today, however pt. still has difficulty feeding herself, or toileting. Can not seem to coordinate movement needed to perform skills. Dtr. stated she only went from the living room to the bathroom at home, and they were doing everything else for her, because she could not do anything for herself at home. Also related that pt's was very demanding and telling her what to do constantly, as he was the only caregiver in the home. Daughters live close and help out with ADLs. Pt. has stated frequently, when she does have coherent communication "I am so stupid!".
[2019-09-28] MEDS: ATORVASTATIN CALCIUM 20 MG TABLET PO SCH (20:31)
[2019-09-28] MEDS: MEMANTINE 10 MG TABLET. PO SCH (20:31)
[2019-09-28] MEDS: DONEPEZIL HCL 10 MG TABLET PO SCH (20:31)
[2019-09-28] MEDS: DULoxetine HCL 60 MG CAPSULE.DR PO SCH (20:33)
--- NOTE | 2019-09-28 22:10 | PDOC ---
Exam Note: [facility] Note: This is a late entry for DOS 09/27/2019. Please also refer to the separate dictated note~for this date of service dictated separately.~Patient seen individually. Discussed the patient with Nursing staff reviewed the chart.~Reviewed interim history and current functioning. Reviewed vital signs,~Labs/ Radiology~and current medications noted below. Continue current treatment with the changes noted in the dictated addendum note Assessment: Vital Signs/I&O: Vital Signs Date Time Temp Pulse Resp B/P (MAP) Pulse Ox O2 Delivery O2 Flow Rate FiO2 09/28/19 16:21 97.9 74 18 109/73 (85) 97 09/27/19 14:15 Room Air I & O 09/27/19 09/27/19 09/28/19 15:00 23:00 07:00 Intake Total 240 ml Balance 240 ml Labs: Laboratory Tests Test 09/28/19 07:12 White Blood Count 8.1 x10^3/uL (4.0-11.0) Red Blood Count 5.09 x10^6/uL (3.50-5.40) Hemoglobin 15.3 g/dL (12.0-15.5) Hematocrit 45.9 % (36.0-47.0) Mean Corpuscular Volume 90 fL (79-100) Mean Corpuscular Hemoglobin 30 pg (25-35) Mean Corpuscular Hemoglobin Concent 33 g/dL (31-37) Red Cell Distribution Width 14.0 % (11.5-14.5) Platelet Count 252 x10^3/uL (140-400) Neutrophils (%) (Auto) 39 % (31-73) Lymphocytes (%) (Auto) 49 % (24-48) H Monocytes (%) (Auto) 8 % (0-9) Eosinophils (%) (Auto) 2 % (0-3) Basophils (%) (Auto) 1 % (0-3) Neutrophils # (Auto) 3.2 x10^3uL (1.8-7.7) Lymphocytes # (Auto) 4.0 x10^3/uL (1.0-4.8) Monocytes # (Auto) 0.7 x10^3/uL (0.0-1.1) Eosinophils # (Auto) 0.2 x10^3/uL (0.0-0.7) Basophils # (Auto) 0.1 x10^3/uL (0.0-0.2) Sodium Level 147 mmol/L (136-145) H Potassium Level 4.2 mmol/L (3.5-5.1) Chloride Level 109 mmol/L (98-107) H Carbon Dioxide Level 28 mmol/L (21-32) Anion Gap 10 (6-14) Blood Urea Nitrogen 7 mg/dL (7-20) Creatinine 0.9 mg/dL (0.6-1.0) Estimated GFR (Cockcroft-Gault) 62.5 BUN/Creatinine Ratio 8 (6-20) Glucose Level 112 mg/dL (70-99) H Calcium Level 9.7 mg/dL (8.5-10.1) Magnesium Level 2.1 mg/dL (1.8-2.4) Iron Level 72 ug/dL (50-170) Total Iron Binding Capacity 291 ug/dL (250-450) Iron Saturation 25 % (15-34) Total Bilirubin 0.4 mg/dL (0.2-1.0) Aspartate Amino Transferase (AST) 24 U/L (15-37) Alanine Aminotransferase (ALT) 25 U/L (14-59) Alkaline Phosphatase 122 U/L (46-116) H Total Protein 7.5 g/dL (6.4-8.2) Albumin 3.7 g/dL (3.4-5.0) Albumin/Globulin Ratio 1.0 (1.0-1.7) Triglycerides Level 114 mg/dL (0-150) Cholesterol Level 148 mg/dL (0-200) LDL Cholesterol, Calculated 74 mg/dL (0-100) VLDL Cholesterol, Calculated 22 mg/dL (0-40) Non-HDL Cholesterol Calculated 96 mg/dL (0-129) HDL Cholesterol 52 mg/dL (40-60) Cholesterol/HDL Ratio 2.0 Thyroid Stimulating Hormone (TSH) 0.407 uIU/mL (0.358-3.740) Thyroxine (T4) 8.8 ug/dL (4.5-12.0) Total Triiodothyronine (TT3) 106 ng/dL (71-180) Current Medications: Meds: Current Medications Medications (Trade) Dose Ordered Sig/Nate Route PRN Reason Start Time Stop Time Status Last Admin Dose Admin Aspirin (Children'S Aspirin) 81 mg DAILY PO 11/10/19 09:00 09/28/19 10:04 Levothyroxine Sodium (Synthroid) 75 mcg DAILY06 PO 09/28/19 06:00 09/28/19 06:19 Vitamin D (Vitamin D3) 2,000 unit DAILY PO 09/28/19 09:00 09/28/19 10:04 Multivitamins/ Calcium (Thera-M Plus) 1 tab DAILY PO 09/28/19 09:00 09/28/19 10:05 Duloxetine HCl (Cymbalta) 60 mg HS PO 09/28/19 21:00 09/28/19 20:33 Lactobacillus Rhamnosus (Culturelle) 1 cap BID PO 09/28/19 09:00 09/28/19 20:31 I have reviewed the current psychotropics carefully including drug interactions. Risk benefit ratio favors no change other than as noted in my dictated progress note. 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
--- NOTE | 2019-09-28 22:11 | PDOC ---
Exam Note: [facility] Note: Please also refer to the separate dictated note~for this date of service dictated separately.~Patient seen individually. Discussed the patient with Nursing staff reviewed the chart.~Reviewed interim history and current functioning. Reviewed vital signs,~Labs/ Radiology~and current medications noted below. Continue current treatment with the changes noted in the dictated addendum note Assessment: Vital Signs/I&O: Vital Signs Date Time Temp Pulse Resp B/P (MAP) Pulse Ox O2 Delivery O2 Flow Rate FiO2 09/28/19 16:21 97.9 74 18 109/73 (85) 97 09/27/19 14:15 Room Air I & O 09/27/19 09/27/19 09/28/19 15:00 23:00 07:00 Intake Total 240 ml Balance 240 ml Labs: Laboratory Tests Test 09/28/19 07:12 White Blood Count 8.1 x10^3/uL (4.0-11.0) Red Blood Count 5.09 x10^6/uL (3.50-5.40) Hemoglobin 15.3 g/dL (12.0-15.5) Hematocrit 45.9 % (36.0-47.0) Mean Corpuscular Volume 90 fL (79-100) Mean Corpuscular Hemoglobin 30 pg (25-35) Mean Corpuscular Hemoglobin Concent 33 g/dL (31-37) Red Cell Distribution Width 14.0 % (11.5-14.5) Platelet Count 252 x10^3/uL (140-400) Neutrophils (%) (Auto) 39 % (31-73) Lymphocytes (%) (Auto) 49 % (24-48) H Monocytes (%) (Auto) 8 % (0-9) Eosinophils (%) (Auto) 2 % (0-3) Basophils (%) (Auto) 1 % (0-3) Neutrophils # (Auto) 3.2 x10^3uL (1.8-7.7) Lymphocytes # (Auto) 4.0 x10^3/uL (1.0-4.8) Monocytes # (Auto) 0.7 x10^3/uL (0.0-1.1) Eosinophils # (Auto) 0.2 x10^3/uL (0.0-0.7) Basophils # (Auto) 0.1 x10^3/uL (0.0-0.2) Sodium Level 147 mmol/L (136-145) H Potassium Level 4.2 mmol/L (3.5-5.1) Chloride Level 109 mmol/L (98-107) H Carbon Dioxide Level 28 mmol/L (21-32) Anion Gap 10 (6-14) Blood Urea Nitrogen 7 mg/dL (7-20) Creatinine 0.9 mg/dL (0.6-1.0) Estimated GFR (Cockcroft-Gault) 62.5 BUN/Creatinine Ratio 8 (6-20) Glucose Level 112 mg/dL (70-99) H Calcium Level 9.7 mg/dL (8.5-10.1) Magnesium Level 2.1 mg/dL (1.8-2.4) Iron Level 72 ug/dL (50-170) Total Iron Binding Capacity 291 ug/dL (250-450) Iron Saturation 25 % (15-34) Total Bilirubin 0.4 mg/dL (0.2-1.0) Aspartate Amino Transferase (AST) 24 U/L (15-37) Alanine Aminotransferase (ALT) 25 U/L (14-59) Alkaline Phosphatase 122 U/L (46-116) H Total Protein 7.5 g/dL (6.4-8.2) Albumin 3.7 g/dL (3.4-5.0) Albumin/Globulin Ratio 1.0 (1.0-1.7) Triglycerides Level 114 mg/dL (0-150) Cholesterol Level 148 mg/dL (0-200) LDL Cholesterol, Calculated 74 mg/dL (0-100) VLDL Cholesterol, Calculated 22 mg/dL (0-40) Non-HDL Cholesterol Calculated 96 mg/dL (0-129) HDL Cholesterol 52 mg/dL (40-60) Cholesterol/HDL Ratio 2.0 Thyroid Stimulating Hormone (TSH) 0.407 uIU/mL (0.358-3.740) Thyroxine (T4) 8.8 ug/dL (4.5-12.0) Total Triiodothyronine (TT3) 106 ng/dL (71-180) Current Medications: Meds: Current Medications Medications (Trade) Dose Ordered Sig/Nate Route PRN Reason Start Time Stop Time Status Last Admin Dose Admin Aspirin (Children'S Aspirin) 81 mg DAILY PO 09/28/19 09:00 09/28/19 10:04 Levothyroxine Sodium (Synthroid) 75 mcg DAILY06 PO 09/28/19 06:00 09/28/19 06:19 Vitamin D (Vitamin D3) 2,000 unit DAILY PO 09/28/19 09:00 09/28/19 10:04 Multivitamins/ Calcium (Thera-M Plus) 1 tab DAILY PO 09/28/19 09:00 09/28/19 10:05 Duloxetine HCl (Cymbalta) 60 mg HS PO 09/28/19 21:00 09/28/19 20:33 Lactobacillus Rhamnosus (Culturelle) 1 cap BID PO 09/28/19 09:00 09/28/19 20:31 I have reviewed the current psychotropics carefully including drug interactions. Risk benefit ratio favors no change other than as noted in my dictated progress note. 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
--- NOTE | 2019-09-28 23:57 | NUR ---
Nsg Note: Patient in day room at time of medication administration and assessments. Patient was compliant, cooperative, somewhat anxious and confused. Patient seems non-sensical when she speaks and needs frequent queing (patient was unable to put medicine cup up to mouth and hold and drink water on her own). No other notable behaviors at this time.
--- NOTE | 2019-09-29 04:57 | CONS ---
DATE OF CONSULTATION: 09/27/2019 REFERRING PHYSICIAN: Dr. Monsalve. REASON FOR CONSULTATION: Acute mental status changes and behavior disturbances. HISTORY OF PRESENT ILLNESS: This is a 69-year-old right-handed female who was admitted on [facility] on account of increasing confusion, agitation and aggressive behavior. The patient is known to me from outpatient care. She has had dementia of Alzheimer type of several years' duration. According to her , she has been very confused with behavior disturbances. She refused taking her medications. She was admitted through Emergency Room after psychiatric screening and she was found to have urinary tract infections. Therefore, she was admitted to ICU for medical care. The patient is not a good historian. She denies chest pain, shortness of breath or palpitation, dysarthria or dysphagia. PAST MEDICAL HISTORY: Significant for hypothyroidism, coronary artery disease, hyperlipidemia, urinary tract infections, dementia, hypertension. SOCIAL HISTORY: The patient is . There is no history of smoking, alcohol drinking, or illicit drug use. FAMILY HISTORY: Noncontributory. PAST SURGICAL HISTORY: Positive for cholecystectomy and appendectomy. ALLERGIES: SULFA DRUGS. CURRENT HOME MEDICATIONS: Aricept 10 mg daily, Namenda 10 mg b.i.d., Cymbalta 60 mg at bedtime, vitamin D 2000 units daily, aspirin 81 mg daily, levothyroxine 75 mcg daily and Lipitor 40 mg daily, Tylenol 50 mg q. 6 hours p.r.n. daily. REVIEW OF SYSTEMS: A 10-point review of system was performed as mentioned above in history of present illness. PHYSICAL EXAMINATION: GENERAL: A well-developed, well-nourished female, not in acute distress. She weighs 59.2 kilos. VITAL SIGNS: Blood pressure is 104/70, respiratory rate 18, pulse is 95, temperature 97.2, oxygen saturation 98% on room air. HEENT: Normocephalic, atraumatic, otherwise unremarkable. NECK: Supple. Negative for carotid bruit, lymphadenopathy or thyromegaly. LUNGS: Clear to A and P. CARDIOVASCULAR: Regular rate and rhythm, normal S1, S2. There is no S3, S4 or murmur. ABDOMEN: Soft. Bowel sounds positive. EXTREMITIES: Negative for cyanosis, clubbing or edema. NEUROLOGICAL EXAMINATION: Mental Status: The patient is alert, but disoriented to time, place and person. Speech is fluent, difficult to assess language dysfunction because of dementia. The patient denies hallucination or delusion. CRANIAL NERVES: Visual hernandez are full. The pupils are reactive to light and accommodation. The extraocular movements are intact. There is no nystagmus. There is no facial motor or sensory deficit. Hearing is intact bilaterally. The palate is elevated symmetrically. Sternocleidomastoid muscles are powerful bilaterally. The patient shrugs her shoulders symmetrically and protrudes her tongue in the midline without fasciculation or atrophy. MOTOR: No focal muscle bulk was seen. The tone is normal. The strength is 4/5 throughout. Sensory examination revealed normal pinprick and light touch senses throughout. Deep tendon reflexes were symmetric and hypoactive with absent Achilles responses. Gait and coordination are normal. LABORATORY DATA: Urinalysis from 09/26/2019 revealed urinary tract infections. Urine drug screen is negative. IMPRESSION: 1. Dementia, likely of Alzheimer type. 2. Behavior disturbances, rule out depression and anxiety. 3. Urinary tract infections. RECOMMENDATIONS: 1. Continue with current medical care with Rocephin. 2. The patient needs to be transferred to [facility] for further psychiatric evaluation; therefore, she needs a psychiatric consult. M Brian QUINN MD DR: JUVE/lamont JOB#: [id number] / [id number]
[2019-09-29] MEDS: LEVOTHYROXINE 75 MCG TABLET PO SCH (05:31)
[2019-09-29 06:01] VITALS: BP 126/83
[2019-09-29] MEDS: CEFDINIR 300 MG CAPSULE PO SCH ×2 (08:50→20:59)
[2019-09-29] MEDS: LACTOBACILLUS RHAMNOSUS GG 1 CAPSULE. PO SCH ×2 (08:50→20:59)
[2019-09-29] MEDS: ASPIRIN 81 MG TAB.CHEW PO SCH (08:50)
[2019-09-29] MEDS: MULTIVITAMIN with MINERAL TABLET. PO SCH (08:50)
[2019-09-29] MEDS: CHOLECALCIFEROL (VITAMIN D3) 1,000 UNIT TABLET PO SCH (08:55)
--- NOTE | 2019-09-29 09:10 | CONS ---
DATE OF CONSULTATION: 09/27/2019 ADDENDUM The patient was admitted initially to [address] [place] [address]. She was brought by her to the Emergency Room for medical clearance to be admitted to the [facility]. She apparently has history of dementia and has been increasingly combative, throwing things, yelling, swearing, harder to control. Her family were concerned that she might have urinary tract infection as well; however, this agitation has been going on for a while now. She actually saw her neurologist who referred her to the Emergency Room for inpatient psychiatric stabilization. She was evaluated in the Emergency Room, was found to have leukocytosis and more than 40 wbc's, positive for nitrite and moderate amount of many bacteria and was admitted to [address] [place] [address] and was started on IV Rocephin and her urine was sent for culture and sensitivity. Once stabilized, she was transferred to [facility] for inpatient psychiatric stabilization. Medically, she is known to have hyperlipidemia, hypothyroidism and dementia. PAST SURGICAL HISTORY: Significant for appendectomy as well as colonoscopy. ALLERGIES: She is allergic to SULFA DRUGS. FAMILY HISTORY: She is the only child, has no brothers or sisters. Both parents are . SOCIAL HISTORY: She is , has 2 daughters. She quit smoking about 10 years ago. She drinks a glass of wine once a week. 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 PHYSICAL EXAMINATION: GENERAL: On examining her, she looked well and was clearly in no apparent respiratory distress. No pallor, jaundice, cyanosis or thyromegaly. No jugular venous distension. No limb edema. VITAL SIGNS: Her heart rate was 74, blood pressure was 109/73, temperature was 97.9, respiratory rate was 18 and oxygen saturation was 97%. The rest of clinical exam is stable. The patient is ambulatory, ambulates without assistance or assistive devices. LABORATORY WORK: Her lab work showed a white cell count of 8000, hemoglobin 15, hematocrit 45, MCV was 90 and platelet count 252,000. Her chemistry showed serum sodium was slightly high at 147, potassium 4.2, chloride 109, bicarbonate 28, anion gap of 10, BUN 7, creatinine was 0.9, estimated GFR was 62 mL per minute. Her glucose 112, calcium was 9.7, magnesium was 2.1. Serum iron, TIBC and iron saturation consistent with anemia of chronic disease. Her total bilirubin, AST, ALT normal. Alkaline phosphatase slightly elevated. Total protein was 7.5, albumin 3.7. Her TSH, total T4, and total T3 are all normal. Her LDL was only 74 and HDL was 52 and the ratio was 2. ASSESSMENT AND PLAN: All in all, this patient is medically stable. She has slightly elevated serum sodium and other medical problems include hyperlipidemia, hypothyroidism and most recently urinary tract infection. PLAN: To obviously continue with Rocephin 300 mg twice a day and await the result of the culture and sensitivity. Nursing staff advised to encourage the patient to drink water as her sodium is slightly high. Thank you, Dr. Monsalve for allowing me to participate in the care of this patient. COBY AMES MD DR: FLOR/lamont JOB#: [id number] / [id number]
--- NOTE | 2019-09-29 12:27 | NUR ---
Pt is confused, calm, cooperative. No agitation, no aggression, no hallucinations, no delusions. Pt is compliant with her medication and assessment.
[2019-09-29 16:10] VITALS: BP 105/78
--- NOTE | 2019-09-29 20:33 | PDOC ---
Exam Note: [facility] Note: Please also refer to the separate dictated note~for this date of service dictated separately.~Patient seen individually. Discussed the patient with Nursing staff reviewed the chart.~Reviewed interim history and current functioning. Reviewed vital signs,~Labs/ Radiology~and current medications noted below. Continue current treatment with the changes noted in the dictated addendum note Assessment: Vital Signs/I&O: Vital Signs Date Time Temp Pulse Resp B/P (MAP) Pulse Ox O2 Delivery O2 Flow Rate FiO2 09/29/19 16:10 98.1 86 16 105/78 (87) 99 09/27/19 14:15 Room Air I & O 09/28/19 09/28/19 09/29/19 14:59 22:59 06:59 Intake Total 60 ml 580 ml Balance 60 ml 580 ml Current Medications: Meds: Current Medications Medications (Trade) Dose Ordered Sig/Nate Route PRN Reason Start Time Stop Time Status Last Admin Dose Admin Duloxetine HCl (Cymbalta) 60 mg HS PO 09/28/19 21:00 09/28/19 20:33 I have reviewed the current psychotropics carefully including drug interactions. Risk benefit ratio favors no change other than as noted in my dictated progress note. 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
[2019-09-29] MEDS: DONEPEZIL HCL 10 MG TABLET PO SCH (20:59)
[2019-09-29] MEDS: DULoxetine HCL 60 MG CAPSULE.DR PO SCH (21:00)
[2019-09-29] MEDS: MEMANTINE 10 MG TABLET. PO SCH (21:00)
[2019-09-29] MEDS: ATORVASTATIN CALCIUM 20 MG TABLET PO SCH (21:00)
--- NOTE | 2019-09-29 23:05 | EKG ---
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
--- NOTE | 2019-09-30 01:08 | NUR ---
Nsg Note: Patient was in the day room at time of medication administration and assessments. Patient was calm, cooperative and compliant. Patient was pleasantly confused. Patient needs a lot of queing. No other notable behaviors at this time.
--- NOTE | 2019-09-30 04:41 | PN ---
DATE: 09/28/2019 PSYCHIATRIC PROGRESS NOTE This late entry 09/28/2019 covers elements not covered in my initial note. SUBJECTIVE: I met with the patient evening of 09/28/2019. The patient continues to be quite confused, intermittently restless, anxious, agitated, had to have her medications arranged previous night, confused, combative, having problems using the utensils to feed herself and she has been changed to finger foods. REVIEW OF SYSTEMS: No CV, , PULMONARY, EYE, ENT system symptoms on review. Reliability poor. MENTAL STATUS EXAM: Oriented to herself. Insight, judgment, recent and remote memory, attention, concentration, fund of knowledge poor, consistent with her diagnosis mentioned in my initial note. PLAN: No change from initial note. Start Zoloft 25 mg a day. Maintain Aricept, Namenda, along with Zyprexa p.r.n. MAN Arya VILLALBA MD DR: LE/lamont JOB#: [id number] / [id number]
[2019-09-30 05:10] VITALS: BP 118/53
[2019-09-30] MEDS: LEVOTHYROXINE 75 MCG TABLET PO SCH (05:21)
[2019-09-30 08:50] VITALS: BP 131/72
[2019-09-30] MEDS: LACTOBACILLUS RHAMNOSUS GG 1 CAPSULE. PO SCH ×2 (08:59→20:19)
[2019-09-30] MEDS: MULTIVITAMIN with MINERAL TABLET. PO SCH (08:59)
[2019-09-30] MEDS: CEFDINIR 300 MG CAPSULE PO SCH ×2 (08:59→20:20)
[2019-09-30] MEDS: ASPIRIN 81 MG TAB.CHEW PO SCH (08:59)
[2019-09-30] MEDS: CHOLECALCIFEROL (VITAMIN D3) 1,000 UNIT TABLET PO SCH (09:00)
--- NOTE | 2019-09-30 09:30 | NUR ---
ACTIVITY THERAPY ASSESSMENT Completed based on observation, interview and notes. Pt. was in the day room, quietly mumbling with another patient who held her hand. Pt. was agreeable to speak with WATER PUMP OPERATOR but needed some physical guidance to stand and follow WATER PUMP OPERATOR to the hallway. Pt. was concerned about her - where he was, afraid something is wrong with him, didn't know anything. All thoughts led back to him and if he didn't want to be with her anymore. Pt. was confused, forgetful, difficult to follow, mostly unable to give logical thoughts but was clear at times. When asked, Pt. said she was anxious and doesn't know what she does to relax. She said her memory sometimes "gets a little goofy" when asked how good it was. Pt. was unable to give information about leisure interests/ hobbies. Pt. had good eye contact and was able to communicate better with yes/no questions or asked to choose between simple options. Initial goal aimed to increase engagement/stimulation: Pt. will participate in at least five individual or Activity Therapy groups per week. Addendum: 10/01/19 at 0929 by [email or web address] [facility] On 09/30/2019 at 1630, WATER PUMP OPERATOR spoke with Pt's two daughters who were on the unit during visiting hours. When asked about Pt's leisure interests, they shared she used to enjoy babysitting, decorating, crosswords and Jeopardy. They shared that she fatigues easily at home (standing for a shower) and has trouble holding some objects steady (drinks). WATER PUMP OPERATOR and Pt's daughters, Junito, chatted about Pt's /their father and his role as main caregiver, services for Pt like home health; however, they were concerned their father has been resistive to that idea in the past and may continue to be resistive. WATER PUMP OPERATOR explained treatment team and Jovanna said she knew about it but wasn't sure if her father was aware of the details. They asked about getting involved in team (either coming in or conference call) and WATER PUMP OPERATOR said she would discuss their interest with their Bathing Suit Maker. On this day, at this time of this addendum, WATER PUMP OPERATOR spoke to Pt's nursing home social worker about her conversation with Pt's daughters the evening before.
--- NOTE | 2019-09-30 15:45 | NUR ---
Nursing note: Pt was in dining room for morning meds and assessment. She was compliant with taking her meds whole with encouragement. She was cooperative with her assessment. Pt was pleasantly confused. Pt has been in the day room for most of the day. No behaviors noted at this time. Will continue to monitor.
[2019-09-30 15:56] VITALS: BP 132/82
[2019-09-30] MEDS: MEMANTINE 10 MG TABLET. PO SCH (20:19)
[2019-09-30] MEDS: ATORVASTATIN CALCIUM 20 MG TABLET PO SCH (20:19)
[2019-09-30] MEDS: DULoxetine HCL 60 MG CAPSULE.DR PO SCH (20:19)
[2019-09-30] MEDS: DONEPEZIL HCL 10 MG TABLET PO SCH (20:20)
[2019-09-30] MEDS: MIRTAZAPINE 7.5 MG TABLET. PO SCH (20:22)
--- NOTE | 2019-09-30 20:56 | PDOC ---
Exam Note: [facility] Note: Please also refer to the separate dictated note~for this date of service dictated separately.~Patient seen individually. Discussed the patient with Nursing staff reviewed the chart.~Reviewed interim history and current functioning. Reviewed vital signs,~Labs/ Radiology~and current medications noted below. Continue current treatment with the changes noted in the dictated addendum note Assessment: Vital Signs/I&O: Vital Signs Date Time Temp Pulse Resp B/P (MAP) Pulse Ox O2 Delivery O2 Flow Rate FiO2 09/30/19 15:56 97.3 76 20 132/82 (99) 93 09/30/19 05:10 Room Air I & O 09/29/19 09/29/19 09/30/19 15:00 23:00 07:00 Intake Total 1080 ml 180 ml 100 ml Balance 1080 ml 180 ml 100 ml Current Medications: Meds: Current Medications Medications (Trade) Dose Ordered Sig/Nate Route PRN Reason Start Time Stop Time Status Last Admin Dose Admin Mirtazapine (Remeron) 7.5 mg QHS PO 09/30/19 21:00 09/30/19 20:22 I have reviewed the current psychotropics carefully including drug interactions. Risk benefit ratio favors no change other than as noted in my dictated progress note. Diagnosis: Problems: (1) Anxiety disorder (2) Impulse control disorder (3) Dementia, vascular, with depression (4) Dementia, vascular, with delusions (5) Dementia in Alzheimer's disease with depression (6) Dementia in Alzheimer's disease with delusions (7) Major neurocognitive disorder (8) Dementia due to arteriosclerosis with behavioral disturbance CRISTINA VILLALBA MD Sep 30, 2019 20:56
[2019-10-01] MEDS: LEVOTHYROXINE 75 MCG TABLET PO SCH (06:00)
[2019-10-01 06:03] VITALS: BP 112/57
[2019-10-01] MEDS: CHOLECALCIFEROL (VITAMIN D3) 1,000 UNIT TABLET PO SCH (08:44)
[2019-10-01] MEDS: ASPIRIN 81 MG TAB.CHEW PO SCH (08:44)
[2019-10-01] MEDS: LACTOBACILLUS RHAMNOSUS GG 1 CAPSULE. PO SCH ×2 (08:44→21:08)
[2019-10-01] MEDS: CEFDINIR 300 MG CAPSULE PO SCH ×2 (08:44→21:08)
[2019-10-01] MEDS: MULTIVITAMIN with MINERAL TABLET. PO SCH (08:44)
--- NOTE | 2019-10-01 11:08 | NUR ---
Nursing note: Pt in dining room for morning meds and assessment. She was calm and compliant with taking her meds whole and cooperative with her assessment. She was pleasantly confused and interactive. Pt is currently in the day room participating in group. Will continue to monitor.
[2019-10-01 16:15] VITALS: BP 136/81
--- NOTE | 2019-10-01 20:34 | PN ---
DATE: 09/29/2019 PSYCHIATRIC PROGRESS NOTE This late entry 09/29/2019 covers elements not covered in my initial note. SUBJECTIVE: I met with the patient evening of 09/29/2019. The patient slept reasonably previous night 6-1/4 hours, remains confused. REVIEW OF SYSTEMS: No CV, , pulmonary, eye, ENT system symptoms on review. Reliability poor. MENTAL STATUS EXAM: Oriented to herself. Insight, judgment, recent and remote memory, attention, concentration, fund of knowledge poor, consistent with her diagnosis mentioned in my initial note. PLAN: No change from initial note. Maintain Cymbalta 60 mg a day, Namenda 10 mg b.i.d., Aricept 10 mg a day, Zyprexa p.r.n. MAN YoanRamón VILLALBA MD DR: LE/lamont JOB#: [id number] / [id number]
--- NOTE | 2019-10-01 20:37 | PN ---
DATE: 09/30/2019 PSYCHIATRIC PROGRESS NOTE This late entry 09/30/2019 covers elements not covered in my initial note. SUBJECTIVE: I met with the patient evening of 09/30/2019. Per XU Valdivia, the patient slept 2 hours previous night, takes her medications whole, confused, not aggressive. She ambulates on her own. REVIEW OF SYSTEMS: No CV, , pulmonary, eye, ENT system symptoms on review. Reliability poor. MENTAL STATUS EXAMINATION: Oriented to herself. Insight, judgment, recent and remote memory, attention, concentration, fund of knowledge poor, consistent with her diagnosis mentioned in my initial note. PLAN: No change from initial note. MAN Arya VILLALBA MD DR: LE/lamont JOB#: [id number] / [id number]
--- NOTE | 2019-10-01 20:46 | PDOC ---
Exam Note: Elio Note: Please also refer to the separate dictated note~for this date of service dictated separately.~Patient seen individually. Discussed the patient with Nursing staff reviewed the chart.~Reviewed interim history and current functioning. Reviewed vital signs,~Labs/ Radiology~and current medications noted below. Continue current treatment with the changes noted in the dictated addendum note Assessment: Vital Signs/I&O: Vital Signs Date Time Temp Pulse Resp B/P (MAP) Pulse Ox O2 Delivery O2 Flow Rate FiO2 10/01/19 16:15 98.0 73 18 136/81 (99) 97 09/30/19 05:10 Room Air I & O 09/30/19 09/30/19 10/01/19 15:00 23:00 07:00 Intake Total 960 ml 120 ml 120 ml Balance 960 ml 120 ml 120 ml Current Medications: Meds: Current Medications Medications (Trade) Dose Ordered Sig/Nate Route PRN Reason Start Time Stop Time Status Last Admin Dose Admin Mirtazapine (Remeron) 7.5 mg QHS PO 09/30/19 21:00 09/30/19 20:22 I have reviewed the current psychotropics carefully including drug interactions. Risk benefit ratio favors no change other than as noted in my dictated progress note. 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
[2019-10-01] MEDS: MIRTAZAPINE 7.5 MG TABLET. PO SCH (21:07)
[2019-10-01] MEDS: ATORVASTATIN CALCIUM 20 MG TABLET PO SCH (21:08)
[2019-10-01] MEDS: DULoxetine HCL 60 MG CAPSULE.DR PO SCH (21:08)
[2019-10-01] MEDS: DONEPEZIL HCL 10 MG TABLET PO SCH (21:08)
[2019-10-01] MEDS: MEMANTINE 10 MG TABLET. PO SCH (21:08)
[2019-10-02] MEDS: LEVOTHYROXINE 75 MCG TABLET PO SCH (05:55)
[2019-10-02 06:18] VITALS: BP 139/88
--- NOTE | 2019-10-02 06:21 | NUR ---
Nursing Note The patient was located in the day room and was calm and compliant with her medication and assessment. The patient took her medication whole. The patient was intrusive with other patients at times. The patient is currently sleeping in her room.
[2019-10-02] MEDS: DIVALPROEX 125 MG CAP.SPRINK PO SCH ×2 (08:33→14:33)
[2019-10-02] MEDS: LACTOBACILLUS RHAMNOSUS GG 1 CAPSULE. PO SCH ×2 (08:33→20:22)
[2019-10-02] MEDS: MULTIVITAMIN with MINERAL TABLET. PO SCH (08:34)
[2019-10-02] MEDS: CHOLECALCIFEROL (VITAMIN D3) 1,000 UNIT TABLET PO SCH (08:35)
[2019-10-02] MEDS: ASPIRIN 81 MG TAB.CHEW PO SCH (08:35)
[2019-10-02] MEDS: CEFDINIR 300 MG CAPSULE PO SCH (08:35)
--- NOTE | 2019-10-02 11:00 | NUR ---
WEEKLY ACTIVITY THERAPY NOTE Date of Admission: 09/27/2019 Date of AT assessment: 09/30/2019 Goal aimed: to increase engagement/stimulation Initial goal: Pt. will participate in at least five individual or Activity Therapy groups per week. Weekly progress towards goal: on track, two groups since admission Group participation level: minimal Weekly highlights: listening to gospel music on Sunday (tearful) Behaviors observed: doesn't make complete sense but does have logical statements, short attention span, confused- taking down pants in day room over weekend Plan: no change to goal at this time Beneficial adaptations: direct staff support
--- NOTE | 2019-10-02 11:02 | NUR ---
WEEKLY NOTE: Pt Mani, participated in tx team via telephone. Pt is eating roughly 5-75% of meals and sleeping on average. Pt is on Aricept, Namenda, Cymbalta and added Depakote 125mg BID for behavioral discontrol. Pt reports that pt is intrusive here but the concerns is that she gets violent here. Pt is medication compliant and is mainly just confused throughout the day. Pt is unsure of the discharge plan at this time. If pt goes home, she will need extra support set up. But the family has been looking into placement also. Pt visits daily and will continue to be in touch with social work to get things set up. ELOS for 10-12 days.
--- NOTE | 2019-10-02 13:58 | NUR ---
Nursing note: Pt was in dining room this morning for meds and assessment. She was compliant with taking her meds whole and was cooperative with her assessment. She was pleasantly confused throughout encounter. Pt has been in the day room for most of the day.
[2019-10-02 16:51] VITALS: BP 117/68
[2019-10-02] MEDS: ATORVASTATIN CALCIUM 20 MG TABLET PO SCH (20:22)
[2019-10-02] MEDS: MIRTAZAPINE 7.5 MG TABLET. PO SCH (20:22)
[2019-10-02] MEDS: MEMANTINE 10 MG TABLET. PO SCH (20:22)
[2019-10-02] MEDS: DONEPEZIL HCL 10 MG TABLET PO SCH (20:22)
[2019-10-02] MEDS: DULoxetine HCL 60 MG CAPSULE.DR PO SCH (20:22)
--- NOTE | 2019-10-02 20:45 | PDOC ---
Exam Note: Elio Note: Please also refer to the separate dictated note~for this date of service dictated separately.~Patient seen individually. Discussed the patient with Nursing staff reviewed the chart.~Reviewed interim history and current functioning. Reviewed vital signs,~Labs/ Radiology~and current medications noted below. Continue current treatment with the changes noted in the dictated addendum note Assessment: Vital Signs/I&O: Vital Signs Date Time Temp Pulse Resp B/P (MAP) Pulse Ox O2 Delivery O2 Flow Rate FiO2 10/02/19 16:51 97.7 75 20 117/68 (84) 95 10/02/19 06:18 Room Air I & O 10/01/19 10/01/19 10/02/19 15:00 23:00 07:00 Intake Total 840 ml 200 ml 0 ml Balance 840 ml 200 ml 0 ml Current Medications: Meds: Current Medications Medications (Trade) Dose Ordered Sig/Nate Route PRN Reason Start Time Stop Time Status Last Admin Dose Admin Divalproex Sodium (Depakote Sprinkles) 125 mg BID92 PO 10/02/19 09:00 10/02/19 14:33 I have reviewed the current psychotropics carefully including drug interactions. Risk benefit ratio favors no change other than as noted in my dictated progress note. 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
--- NOTE | 2019-10-02 21:55 | NUR ---
Nursing Note Pt confused speaks in a word salad. Med compliant no agitation or aggression.
[2019-10-03 06:29] VITALS: BP 104/73
[2019-10-03] MEDS: LEVOTHYROXINE 75 MCG TABLET PO SCH (07:15)
[2019-10-03] MEDS: DIVALPROEX 125 MG CAP.SPRINK PO SCH ×2 (09:17→13:47)
[2019-10-03] MEDS: CHOLECALCIFEROL (VITAMIN D3) 1,000 UNIT TABLET PO SCH (09:17)
[2019-10-03] MEDS: MULTIVITAMIN with MINERAL TABLET. PO SCH (09:17)
[2019-10-03] MEDS: LACTOBACILLUS RHAMNOSUS GG 1 CAPSULE. PO SCH ×2 (09:17→20:09)
[2019-10-03] MEDS: ASPIRIN 81 MG TAB.CHEW PO SCH (09:17)
--- NOTE | 2019-10-03 13:04 | PN ---
DATE: 10/01/2019 PSYCHIATRIC PROGRESS NOTE This late entry of 10/01/2019 covers elements not covered in my initial note. SUBJECTIVE: I met with the patient in the evening of 10/01/2019. Per XU Valdivia, the patient slept 6-3/4 hours previous night. She did well with the meds in the morning, confused. At 3:00 p.m., she was increasingly agitated, intrusive, received Zyprexa at 15:20 p.r.n. and then did better. REVIEW OF SYSTEMS: No CV, , pulmonary, eye, ENT system symptoms on review. Reliability poor. MENTAL STATUS EXAM: Oriented to herself. Insight, judgment, recent and remote memory, attention, concentration, fund of knowledge poor, consistent with her diagnosis mentioned in my initial note. PLAN: Start Depakote Sprinkles 125 mg 9:00 a.m. and 1:00 p.m. Check CBC, CMP, valproic acid level in 3 days. Maintain Namenda 10 b.i.d., Aricept 10 mg a day, Cymbalta 60 mg a day. Adjust further as clinically indicated. MAN Arya VILLALBA MD DR: LE/lamont JOB#: [id number] / [id number]
[2019-10-03 16:07] VITALS: BP 113/74
--- NOTE | 2019-10-03 16:12 | NUR ---
Patient has been calm,disorganized, compliant, and pleasantly confused this shift. She was been wandering in the hallway or sitting in the [place] near the [facility] nurses' station most of the shift. She has required a lot of cuing and redirection when providing medications related to her increased disorganization. Will continue to monitor and report to oncoming shift.
[2019-10-03] MEDS: DULoxetine HCL 60 MG CAPSULE.DR PO SCH (20:09)
[2019-10-03] MEDS: DONEPEZIL HCL 10 MG TABLET PO SCH (20:09)
[2019-10-03] MEDS: ATORVASTATIN CALCIUM 20 MG TABLET PO SCH (20:09)
[2019-10-03] MEDS: MIRTAZAPINE 7.5 MG TABLET. PO SCH (20:09)
[2019-10-03] MEDS: MEMANTINE 10 MG TABLET. PO SCH (20:09)
--- NOTE | 2019-10-03 20:16 | PN ---
DATE: 10/02/2019 PSYCHIATRIC PROGRESS NOTE This late entry 10/02/2019 covers the elements not covered in my initial note. SUBJECTIVE: I met with the patient in the evening of 10/02/2019 and staffed at a treatment team meeting with the entire team in the morning. The patient's , Mani joined us at the treatment team meeting. Reviewed the patient's history, diagnosis, workup and treatment. The patient is sleeping 6 hours, appetite 80%, cooperative, and confused. REVIEW OF SYSTEMS: No CV, , pulmonary, eye, ENT system symptoms on review. Reliability is poor. MENTAL STATUS EXAM: Oriented to herself. Insight, judgment, recent and remote memory, attention, concentration, fund of knowledge poor, consistent with her diagnosis mentioned in my initial note. PLAN: No change from initial note. MAN Arya VILLALBA MD DR: LE/lamont JOB#: [id number] / [id number]
--- NOTE | 2019-10-03 21:01 | PDOC ---
Exam Note: Elio Note: Please also refer to the separate dictated note~for this date of service dictated separately.~Patient seen individually. Discussed the patient with Nursing staff reviewed the chart.~Reviewed interim history and current functioning. Reviewed vital signs,~Labs/ Radiology~and current medications noted below. Continue current treatment with the changes noted in the dictated addendum note Assessment: Vital Signs/I&O: Vital Signs Date Time Temp Pulse Resp B/P (MAP) Pulse Ox O2 Delivery O2 Flow Rate FiO2 10/03/19 16:07 97.5 76 18 113/74 (87) 94 10/02/19 06:18 Room Air I & O 10/02/19 10/02/19 10/03/19 14:59 22:59 06:59 Intake Total 960 ml 240 ml 240 ml Balance 960 ml 240 ml 240 ml Current Medications: I have reviewed the current psychotropics carefully including drug interactions. Risk benefit ratio favors no change other than as noted in my dictated progress note. 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
--- NOTE | 2019-10-03 21:52 | NUR ---
Pt sitting in day room at shift change. Pt calm, pleasantly confused, and disorganized. Pt cooperative with assessment and compliant with medications administered whole.
[2019-10-04] MEDS: LEVOTHYROXINE 75 MCG TABLET PO SCH (05:09)
[2019-10-04 05:21] VITALS: BP 146/84
[2019-10-04] MEDS: DIVALPROEX 125 MG CAP.SPRINK PO SCH ×2 (08:17→14:01)
[2019-10-04] MEDS: LACTOBACILLUS RHAMNOSUS GG 1 CAPSULE. PO SCH ×2 (08:17→20:42)
[2019-10-04] MEDS: CHOLECALCIFEROL (VITAMIN D3) 1,000 UNIT TABLET PO SCH (08:17)
[2019-10-04] MEDS: MULTIVITAMIN with MINERAL TABLET. PO SCH (08:17)
[2019-10-04] MEDS: ASPIRIN 81 MG TAB.CHEW PO SCH (08:17)
--- NOTE | 2019-10-04 11:29 | NUR ---
Cooperative with assessment and a.m. meds, needs cueing to take pills, but able to take whole assist. Restless after finished breakfast, wanted to get up immediately, redirected several times to sit and wait for staff. No short term memory evident, and confused with skilled nursing. Oriented only to self. Word searches at times. Thought was present. Spoke fondly of Joyce, but did not know who she was. Remains pleasantly confused.
[2019-10-04 16:02] VITALS: BP 145/65
[2019-10-04] MEDS: DULoxetine HCL 60 MG CAPSULE.DR PO SCH (20:42)
[2019-10-04] MEDS: DONEPEZIL HCL 10 MG TABLET PO SCH (20:42)
[2019-10-04] MEDS: MIRTAZAPINE 7.5 MG TABLET. PO SCH (20:42)
[2019-10-04] MEDS: ATORVASTATIN CALCIUM 20 MG TABLET PO SCH (20:42)
[2019-10-04] MEDS: MEMANTINE 10 MG TABLET. PO SCH (20:42)
--- NOTE | 2019-10-04 20:50 | PDOC ---
Exam Note: Elio Note: Please also refer to the separate dictated note~for this date of service dictated separately.~Patient seen individually. Discussed the patient with Nursing staff reviewed the chart.~Reviewed interim history and current functioning. Reviewed vital signs,~Labs/ Radiology~and current medications noted below. Continue current treatment with the changes noted in the dictated addendum note Assessment: Vital Signs/I&O: Vital Signs Date Time Temp Pulse Resp B/P (MAP) Pulse Ox O2 Delivery O2 Flow Rate FiO2 10/04/19 16:02 98.7 60 18 145/65 (91) 99 10/04/19 05:21 Room Air I & O 10/03/19 10/03/19 10/04/19 15:00 23:00 07:00 Intake Total 720 ml 0 ml Balance 720 ml 0 ml Current Medications: I have reviewed the current psychotropics carefully including drug interactions. Risk benefit ratio favors no change other than as noted in my dictated progress note. 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
--- NOTE | 2019-10-04 23:52 | NUR ---
Nursing Note Pt pleasantly confused this pm. Rambling speech pattern smiles on approach, but no aggression or agitation noted.
[2019-10-05] MEDS: LEVOTHYROXINE 75 MCG TABLET PO SCH (05:35)
[2019-10-05] MEDS: CHOLECALCIFEROL (VITAMIN D3) 1,000 UNIT TABLET PO SCH (05:50)
[2019-10-05] MEDS: ASPIRIN 81 MG TAB.CHEW PO SCH (05:50)
[2019-10-05] MEDS: MULTIVITAMIN with MINERAL TABLET. PO SCH (05:50)
[2019-10-05] MEDS: DIVALPROEX 125 MG CAP.SPRINK PO SCH ×2 (05:51→14:42)
[2019-10-05] MEDS: LACTOBACILLUS RHAMNOSUS GG 1 CAPSULE. PO SCH ×2 (05:51→20:22)
[2019-10-05 06:35] VITALS: BP 138/90
[2019-10-05 08:44] LABS: BASO # 0.1 x10^3/uL (0.0-0.2); BASO % 1 % (0-3); EOS # 0.1 x10^3/uL (0.0-0.7); EOS % 1 % (0-3); HEMATOCRIT 46.7 % (36.0-47.0); HEMOGLOBIN 15.4 g/dL (12.0-15.5); LYMPH # 2.5 x10^3/uL (1.0-4.8); LYMPH % 31 % (24-48); MEAN CORPUSCULAR HEMOGLOBIN 30 pg (25-35); MEAN CORPUSCULAR HGB CONC 33 g/dL (31-37); MEAN CORPUSCULAR VOLUME 91 fL (79-100); MONO # 0.6 x10^3/uL (0.0-1.1); MONO % 7 % (0-9); NEUT # 4.8 x10^3uL (1.8-7.7); NEUT % 60 % (31-73); PLATELET COUNT 281 x10^3/uL (140-400); RED BLOOD COUNT 5.16 x10^6/uL (3.50-5.40); RED CELL DISTRIBUTION WIDTH 14.3 % (11.5-14.5); WHITE BLOOD COUNT 8.1 x10^3/uL (4.0-11.0)
[2019-10-05 08:45] LABS: BLOOD UREA NITROGEN 6 mg/dL (7-20); CHLORIDE 107 mmol/L (98-107); POTASSIUM 3.8 mmol/L (3.5-5.1); SODIUM 145 mmol/L (136-145)
[2019-10-05 09:15] LABS: ALBUMIN 3.9 g/dL (3.4-5.0); ALK PHOS 118 U/L (46-116); ALT (SGPT) 26 U/L (14-59); ANION GAP 11 (6-14); AST (SGOT) 25 U/L (15-37); BUN/CREATININE RATIO 8 (6-20); CALCIUM 9.5 mg/dL (8.5-10.1); CARBON DIOXIDE 27 mmol/L (21-32); CREATININE 0.8 mg/dL (0.6-1.0); GFR 71.5; GLUCOSE 101 mg/dL (70-99); TOTAL BILIRUBIN 0.4 mg/dL (0.2-1.0); TOTAL PROTEIN 7.9 g/dL (6.4-8.2)
[2019-10-05 09:35] LABS: VAL ACID 35 mcg/mL (50-100)
[2019-10-05 10:47] LABS: % ATYL 2 % (0-0); % BANDS 3 % (0-9); % BASOS 2 % (0-3); % LYMPHS 33 % (24-48); % MONOS 9 % (0-10); % SEGS 51 % (35-66); PLT ESTIMATE ADEQUATE (ADEQUATE); TOXIC GRANULATION SLIGHT
[2019-10-05 16:14] VITALS: BP 137/76
--- NOTE | 2019-10-05 16:26 | NUR ---
Has been pleasantly confused, social, and compliant today, until 16:00 when mood suddenly changed. Became agitated in the day room, shoved a very heavy chair and was talking angrily toward a staff member, unprovoked. Her daughter and grandaughter arrived shortly thereafter with additional shoes for her. She continued labile, tearful, not recognizing her daughter, and agitated while seated in a chair. Allowed to move to a table with her daughter, and given 1/2 Zyprexa, which would not scan on this computer. Took PO easily with water. Appears to be deescalating while visiting with family. She had been given the scheduled dose of Depakote approx. 1 hour prior and drinking a gatorade.
[2019-10-05] MEDS: MIRTAZAPINE 7.5 MG TABLET. PO SCH (20:22)
[2019-10-05] MEDS: DULoxetine HCL 60 MG CAPSULE.DR PO SCH (20:22)
[2019-10-05] MEDS: ATORVASTATIN CALCIUM 20 MG TABLET PO SCH (20:22)
[2019-10-05] MEDS: MEMANTINE 10 MG TABLET. PO SCH (20:22)
[2019-10-05] MEDS: DONEPEZIL HCL 10 MG TABLET PO SCH (20:22)
--- NOTE | 2019-10-05 20:35 | PDOC ---
Exam Note: Elio Note: Please also refer to the separate dictated note~for this date of service dictated separately.~Patient seen individually. Discussed the patient with Nursing staff reviewed the chart.~Reviewed interim history and current functioning. Reviewed vital signs,~Labs/ Radiology~and current medications noted below. Continue current treatment with the changes noted in the dictated addendum note Assessment: Vital Signs/I&O: Vital Signs Date Time Temp Pulse Resp B/P (MAP) Pulse Ox O2 Delivery O2 Flow Rate FiO2 10/05/19 16:14 97.2 88 18 137/76 (96) 98 10/04/19 05:21 Room Air I & O 10/04/19 10/04/19 10/05/19 15:00 23:00 07:00 Intake Total 720 ml 480 ml Balance 720 ml 480 ml Labs: Laboratory Tests Test 10/05/19 07:45 White Blood Count 8.1 x10^3/uL (4.0-11.0) Red Blood Count 5.16 x10^6/uL (3.50-5.40) Hemoglobin 15.4 g/dL (12.0-15.5) Hematocrit 46.7 % (36.0-47.0) Mean Corpuscular Volume 91 fL (79-100) Mean Corpuscular Hemoglobin 30 pg (25-35) Mean Corpuscular Hemoglobin Concent 33 g/dL (31-37) Red Cell Distribution Width 14.3 % (11.5-14.5) Platelet Count 281 x10^3/uL (140-400) Neutrophils (%) (Auto) 60 % (31-73) Lymphocytes (%) (Auto) 31 % (24-48) Monocytes (%) (Auto) 7 % (0-9) Eosinophils (%) (Auto) 1 % (0-3) Basophils (%) (Auto) 1 % (0-3) Neutrophils # (Auto) 4.8 x10^3uL (1.8-7.7) Lymphocytes # (Auto) 2.5 x10^3/uL (1.0-4.8) Monocytes # (Auto) 0.6 x10^3/uL (0.0-1.1) Eosinophils # (Auto) 0.1 x10^3/uL (0.0-0.7) Basophils # (Auto) 0.1 x10^3/uL (0.0-0.2) Segmented Neutrophils % 51 % (35-66) Band Neutrophils % 3 % (0-9) Lymphocytes % 33 % (24-48) Atypical Lymphocytes % (Manual) 2 % (0-0) H Monocytes % 9 % (0-10) Basophils % 2 % (0-3) Toxic Granulation Slight Platelet Estimate Adequate (ADEQUATE) Large Platelets Occ Sodium Level 145 mmol/L (136-145) Potassium Level 3.8 mmol/L (3.5-5.1) Chloride Level 107 mmol/L (98-107) Carbon Dioxide Level 27 mmol/L (21-32) Anion Gap 11 (6-14) Blood Urea Nitrogen 6 mg/dL (7-20) L Creatinine 0.8 mg/dL (0.6-1.0) Estimated GFR (Cockcroft-Gault) 71.5 BUN/Creatinine Ratio 8 (6-20) Glucose Level 101 mg/dL (70-99) H Calcium Level 9.5 mg/dL (8.5-10.1) Total Bilirubin 0.4 mg/dL (0.2-1.0) Aspartate Amino Transferase (AST) 25 U/L (15-37) Alanine Aminotransferase (ALT) 26 U/L (14-59) Alkaline Phosphatase 118 U/L (46-116) H Total Protein 7.9 g/dL (6.4-8.2) Albumin 3.9 g/dL (3.4-5.0) Albumin/Globulin Ratio 1.0 (1.0-1.7) Valproic Acid Level 35 mcg/mL (50-100) L Valproic Acid Last Dose Date 10/04/19 Valproic Acid Last Dose Time 1300 Current Medications: I have reviewed the current psychotropics carefully including drug interactions. Risk benefit ratio favors no change other than as noted in my dictated progress note. 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
--- NOTE | 2019-10-05 20:39 | NUR ---
Pt sitting quietly in the day room at shift change. Pt calm, pleasantly confused, and interactive. No further agitation noted thus far this shift. Pt cooperative with assessment and compliant with medications administered whole with cueing.
--- NOTE | 2019-10-05 23:24 | PN ---
DATE: 10/03/2019 PSYCHIATRIC PROGRESS NOTE This late entry 10/03/2019 covers elements not covered in my initial note. SUBJECTIVE: I met with the patient evening of 10/03/2019. Per Toribio RN, the patient slept 8 hours previous night. She is disorganized, has difficulty taking her medications, but not aggressive. REVIEW OF SYSTEMS: No CV, , pulmonary, eye, ENT system symptoms on review. Reliability poor. MENTAL STATUS EXAM: Oriented to herself. Insight, judgment, recent and remote memory, attention, concentration, fund of knowledge poor, consistent with her diagnosis mentioned in my initial note. PLAN: No change from initial note. MAN Arya VILLALBA MD DR: LE/lamont JOB#: [id number] / [id number]
--- NOTE | 2019-10-05 23:51 | PN ---
DATE: 10/04/2019 PSYCHIATRIC PROGRESS NOTE This late entry, 10/04, covers elements not covered in my initial note. SUBJECTIVE: I met with the patient evening of 10/04. The patient slept 6 hours previous night. Per nursing reports, she remains confused, has been giddy, acting somewhat drunk in the morning, inappropriate with one of the other male patients on the unit, somewhat euphoric. We will be checking labs in the morning of 10/05 on her Depakote. REVIEW OF SYSTEMS: No CV, , pulmonary, eye, ENT system symptoms on review. Reliability poor. MENTAL STATUS EXAMINATION: Oriented to herself. Insight, judgment, recent and remote memory, attention, concentration, fund of knowledge poor, consistent with her diagnosis mentioned in the initial note. PLAN: No change from initial note. MAN Arya VILLALBA MD DR: LE/lamont JOB#: [id number] / [id number]
[2019-10-06] MEDS: LEVOTHYROXINE 75 MCG TABLET PO SCH (05:29)
--- NOTE | 2019-10-06 05:31 | NUR ---
Pt crying and anxious this morning. Pt asking "Is anything wrong with Kwaku?" "He isn't hurt is he?" Pt confirms Kwaku is her and that she is worried about him and wants to see him. This nurse provided reassurance and re-orientation, however pt continued to cry. PRN Zydis administered as ordered at this time.
[2019-10-06 05:50] LABS: COLOR,URINE YELLOW
[2019-10-06 05:51] LABS: BACTERIA,URINE FEW /HPF (0-FEW); BILIRUBIN,URINE NEG (NEG); CLARITY,URINE HAZY; GLUCOSE,URINE NEG (NEG); NITRITE,URINE NEG (NEG); RBC,URINE 0 /HPF (0-2); SQUAMOUS EPITHELIAL CELL,UR FEW /LPF; UROBILINOGEN,URINE 0.2 mg/dL (0.2 mg/dL)
[2019-10-06 05:52] VITALS: BP 127/69
[2019-10-06] MEDS: MULTIVITAMIN with MINERAL TABLET. PO SCH (08:13)
[2019-10-06] MEDS: DIVALPROEX 125 MG CAP.SPRINK PO SCH ×2 (08:13→13:34)
[2019-10-06] MEDS: CHOLECALCIFEROL (VITAMIN D3) 1,000 UNIT TABLET PO SCH (08:14)
[2019-10-06] MEDS: ASPIRIN 81 MG TAB.CHEW PO SCH (08:14)
[2019-10-06] MEDS: LACTOBACILLUS RHAMNOSUS GG 1 CAPSULE. PO SCH ×2 (08:14→20:08)
--- NOTE | 2019-10-06 15:17 | NUR ---
Patient is in the dining room for assessment and medication. She is in pleasant spirits. Calm, cooperative and compliant. Took her medications whole, with some cueing. Enjoyed a visit with her at lunchtime, participated in groups. No agitation. Denies SI/HI. Denies any pain or discomfort.
[2019-10-06] MEDS: ATORVASTATIN CALCIUM 20 MG TABLET PO SCH (20:07)
[2019-10-06] MEDS: MEMANTINE 10 MG TABLET. PO SCH (20:07)
[2019-10-06] MEDS: DULoxetine HCL 60 MG CAPSULE.DR PO SCH (20:08)
[2019-10-06] MEDS: DONEPEZIL HCL 10 MG TABLET PO SCH (20:08)
[2019-10-06] MEDS: MIRTAZAPINE 7.5 MG TABLET. PO SCH (20:08)
--- NOTE | 2019-10-06 20:15 | PDOC ---
Exam Note: Elio Note: Please also refer to the separate dictated note~for this date of service dictated separately.~Patient seen individually. Discussed the patient with Nursing staff reviewed the chart.~Reviewed interim history and current functioning. Reviewed vital signs,~Labs/ Radiology~and current medications noted below. Continue current treatment with the changes noted in the dictated addendum note Assessment: Vital Signs/I&O: Vital Signs Date Time Temp Pulse Resp B/P (MAP) Pulse Ox O2 Delivery O2 Flow Rate FiO2 10/06/19 05:52 97.2 69 16 127/69 (88) 97 Room Air I & O 10/05/19 10/05/19 10/06/19 15:00 23:00 07:00 Intake Total 960 ml 480 ml 120 ml Balance 960 ml 480 ml 120 ml Labs: Laboratory Tests Test 10/06/19 05:27 Urine Collection Type Unknown Urine Color Yellow Urine Clarity Hazy Urine pH 6.5 Urine Specific [place] 1.015 Urine Protein Neg (NEG-TRACE) Urine Glucose (UA) Neg mg/dL (NEG) Urine Ketones (Stick) Neg mg/dL (NEG) Urine Blood Neg (NEG) Urine Nitrite Neg (NEG) Urine Bilirubin Neg (NEG) Urine Urobilinogen Dipstick 0.2 mg/dL (0.2 mg/dL) Urine Leukocyte Esterase Trace (NEG) Urine RBC 0 /HPF (0-2) Urine WBC 5-10 /HPF (0-4) Urine Squamous Epithelial Cells Few /LPF Urine Bacteria Few /HPF (0-FEW) Current Medications: I have reviewed the current psychotropics carefully including drug interactions. Risk benefit ratio favors no change other than as noted in my dictated progress note. 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
[2019-10-06 21:00] VITALS: BP 127/69
--- NOTE | 2019-10-06 22:43 | NUR ---
Pt sitting in day room at shift change. Pt calm, pleasantly confused, and disorganized. Pt cooperative with assessment and compliant with medications administered whole on a spoon.
--- NOTE | 2019-10-07 00:58 | PN ---
DATE: 10/05/2019 PSYCHIATRIC PROGRESS NOTE This late entry, 10/05, covers the elements not covered in my initial note. SUBJECTIVE: I met with the patient in the evening. Overall, the patient did well all day until about 4 p.m. then she was yelling, swearing, pushing the chair, agitated, saying someone had poked her stomach. She does seem to have sundowning, will check a UA, make sure she does not have a UTI to explain some of this. REVIEW OF SYSTEMS: No CV, , pulmonary, eye, ENT systems symptoms on review. Reliability poor. MENTAL STATUS EXAM: Oriented to herself. Insight, judgment, recent and remote memory, attention, concentration, fund of knowledge poor, consistent with her diagnoses. IMPRESSION: Major neurocognitive disorder, Alzheimer, vascular with delusion, depression, behavioral disturbance; anxiety disorder, unspecified; impulse control disorder, unspecified; rule out urinary tract infection. Rest unchanged. PLAN: Continue current psychotropics, Namenda, Aricept, Cymbalta, Depakote Sprinkles, Remeron. Check UA. May need to increase Depakote in due course and will make further adjustments in psychotropics post-UA C and S received. CRISTINA VILLALBA MD DR: LE/lamont JOB#: [id number] / [id number]
[2019-10-07] MEDS: LEVOTHYROXINE 75 MCG TABLET PO SCH (06:13)
[2019-10-07 06:26] VITALS: BP 140/76
[2019-10-07] MEDS: MULTIVITAMIN with MINERAL TABLET. PO SCH (08:48)
[2019-10-07] MEDS: DIVALPROEX 125 MG CAP.SPRINK PO SCH ×2 (08:48→13:58)
[2019-10-07] MEDS: LACTOBACILLUS RHAMNOSUS GG 1 CAPSULE. PO SCH ×2 (08:49→19:49)
[2019-10-07] MEDS: CHOLECALCIFEROL (VITAMIN D3) 1,000 UNIT TABLET PO SCH (08:49)
[2019-10-07] MEDS: ASPIRIN 81 MG TAB.CHEW PO SCH (08:49)
--- NOTE | 2019-10-07 13:14 | NUR ---
Nursing Note Patient has been calm, disorganized, compliant, and pleasantly confused this shift. Patient has required a lot of cuing and redirection when providing medications r/t her increased disorganization. Will continue to monitor and report to oncoming shift.
[2019-10-07 16:15] VITALS: BP 111/75
[2019-10-07] MEDS: MIRTAZAPINE 7.5 MG TABLET. PO SCH (19:48)
[2019-10-07] MEDS: ATORVASTATIN CALCIUM 20 MG TABLET PO SCH (19:49)
[2019-10-07] MEDS: MEMANTINE 10 MG TABLET. PO SCH (19:49)
[2019-10-07] MEDS: DULoxetine HCL 60 MG CAPSULE.DR PO SCH (19:49)
[2019-10-07] MEDS: DONEPEZIL HCL 10 MG TABLET PO SCH (19:49)
--- NOTE | 2019-10-07 20:00 | PDOC ---
Exam Note: Elio Note: Please also refer to the separate dictated note~for this date of service dictated separately.~Patient seen individually. Discussed the patient with Nursing staff reviewed the chart.~Reviewed interim history and current functioning. Reviewed vital signs,~Labs/ Radiology~and current medications noted below. Continue current treatment with the changes noted in the dictated addendum note Assessment: Vital Signs/I&O: Vital Signs Date Time Temp Pulse Resp B/P (MAP) Pulse Ox O2 Delivery O2 Flow Rate FiO2 10/07/19 16:15 97.5 80 18 111/75 (87) 95 10/06/19 05:52 Room Air I & O 10/06/19 10/06/19 10/07/19 14:59 22:59 06:59 Intake Total 600 ml 120 ml 120 ml Balance 600 ml 120 ml 120 ml Current Medications: I have reviewed the current psychotropics carefully including drug interactions. Risk benefit ratio favors no change other than as noted in my dictated progress note. 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
--- NOTE | 2019-10-07 20:30 | PN ---
DATE: 10/06/2019 PSYCHIATRIC PROGRESS NOTE This late entry 10/06/2019 covers elements not covered in my initial note. SUBJECTIVE: I met with the patient in the evening. Per Maribel RN, the patient slept 6-1/2 hours previous night. UA has reflux to culture. We will treat the UTI once this return. She was agitated, anxious in the morning, received Zyprexa p.r.n. Thought her was hurt and injured. Her visited and she did well during the visit, quite disorganized pulling her meds out of her mouth. REVIEW OF SYSTEMS: No CV, , pulmonary, eye, ENT system symptoms on review. Reliability poor. MENTAL STATUS EXAM: Oriented to herself. Insight, judgment, recent and remote memory, attention, concentration, fund of knowledge poor, consistent with her diagnosis mentioned in my initial note. PLAN: No change from initial note. MAN Arya VILLALBA MD DR: LE/lamont JOB#: [id number] / [id number]
--- NOTE | 2019-10-07 22:33 | NUR ---
Pt sitting quietly in the day room at shift change. Pt calm, pleasantly confused, and disorganized, interactive when approached. Pt cooperative with assessment and compliant with medications administered whole on a spoon.
[2019-10-08] MEDS: LEVOTHYROXINE 75 MCG TABLET PO SCH (06:00)
[2019-10-08 06:14] VITALS: BP 120/70
[2019-10-08] MEDS: LACTOBACILLUS RHAMNOSUS GG 1 CAPSULE. PO SCH ×2 (08:54→20:37)
[2019-10-08] MEDS: DIVALPROEX 125 MG CAP.SPRINK PO SCH ×2 (08:54→13:31)
[2019-10-08] MEDS: ASPIRIN 81 MG TAB.CHEW PO SCH (08:54)
[2019-10-08] MEDS: CHOLECALCIFEROL (VITAMIN D3) 1,000 UNIT TABLET PO SCH (08:55)
[2019-10-08] MEDS: MULTIVITAMIN with MINERAL TABLET. PO SCH (08:55)
--- NOTE | 2019-10-08 10:00 | NUR ---
Social work student (SWS) student invited patient to play a Tetris game in the day room. The pt enjoyed the different color tile pieces and especially liked the blue pieces. When shown how to drop the tiles into the Tetris board, the pt was still unclear about what to do with the tiles. The pt enjoyed having a conversation, however the contents of the conversation was often word salad. For example, pt responds "[place]" when asked a direct question like "Where were you born?" However, when asked "What city were you born," the pt responds "[place]" and then goes on to say other things that are off-topic. Pt appears happy and likes to whistle softly under her breath. SWS will check in with her tomorrow to see how she is doing.
--- NOTE | 2019-10-08 11:52 | NUR ---
Nursing Note Patient sitting in the chair in the hallway. She was calm, and confused, however, compliant with medications whole. Patient still continues to talk nonsensical when spoken to. Will continue to monitor and report to oncoming shift.
[2019-10-08 16:34] VITALS: BP 111/75
--- NOTE | 2019-10-08 20:02 | PDOC ---
Exam Note: Elio Note: Please also refer to the separate dictated note~for this date of service dictated separately.~Patient seen individually. Discussed the patient with Nursing staff reviewed the chart.~Reviewed interim history and current functioning. Reviewed vital signs,~Labs/ Radiology~and current medications noted below. Continue current treatment with the changes noted in the dictated addendum note Assessment: Vital Signs/I&O: Vital Signs Date Time Temp Pulse Resp B/P (MAP) Pulse Ox O2 Delivery O2 Flow Rate FiO2 10/08/19 16:34 97.3 74 20 111/75 (87) 97 10/06/19 05:52 Room Air I & O 10/07/19 10/07/19 10/08/19 15:00 23:00 07:00 Intake Total 1080 ml 360 ml Balance 1080 ml 360 ml Current Medications: I have reviewed the current psychotropics carefully including drug interactions. Risk benefit ratio favors no change other than as noted in my dictated progress note. 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
[2019-10-08] MEDS: MIRTAZAPINE 7.5 MG TABLET. PO SCH (20:37)
[2019-10-08] MEDS: ATORVASTATIN CALCIUM 20 MG TABLET PO SCH (20:37)
[2019-10-08] MEDS: DONEPEZIL HCL 10 MG TABLET PO SCH (20:37)
[2019-10-08] MEDS: MEMANTINE 10 MG TABLET. PO SCH (20:37)
[2019-10-08] MEDS: DULoxetine HCL 60 MG CAPSULE.DR PO SCH (20:37)
--- NOTE | 2019-10-08 21:54 | NUR ---
NSg Note: Patient was in day room at time of medication administration and assessments. Patient was calm, compliant and pleasantly confused. Patient was interacting with staff and other patients. Patient went to sleep shortly after this interaction. No other notable behaviors at this time.
--- NOTE | 2019-10-09 01:53 | PN ---
DATE: 10/07/2019 This late entry 10/07/2019 covers elements not covered in my initial note. SUBJECTIVE: I met with the patient in the evening. The patient slept 6 hours previous night per XU Castrejon. She did well in the morning, but in the evening, she was anxious, crying, remains extremely confused, seeing people. UA has reflux to culture and sensitivity and probably accounts for some of her change in mental status. We will defer management to Dr. Willis. REVIEW OF SYSTEMS: No CV, , pulmonary, eye, ENT system symptoms on review. Reliability poor. MENTAL STATUS EXAM: Oriented to herself. Insight, judgment, recent and remote memory, attention, concentration, fund of knowledge poor, consistent with her diagnosis mentioned in my initial note. IMPRESSION: Major neurocognitive disorder, Alzheimer, vascular with delusion, depression, behavioral disturbance, probable urinary tract infection. Rest unchanged. PLAN: No change from initial note. Treat the UTI after culture received. Rest unchanged. CRISTINA VILLALBA MD DR: LE/nts JOB#: [id number] / [id number]
[2019-10-09] MEDS: LEVOTHYROXINE 75 MCG TABLET PO SCH (05:18)
[2019-10-09 06:10] VITALS: BP 156/82
--- NOTE | 2019-10-09 07:41 | NUR ---
Urine culture final result: >100,000 coagulase negative [address]aphylococcus. Paged Dr. Willis and discussed results with him. He stated he will address the results on rounds today.
[2019-10-09] MEDS: CHOLECALCIFEROL (VITAMIN D3) 1,000 UNIT TABLET PO SCH (08:18)
[2019-10-09] MEDS: DIVALPROEX 125 MG CAP.SPRINK PO SCH ×2 (08:19→14:06)
[2019-10-09] MEDS: ASPIRIN 81 MG TAB.CHEW PO SCH (08:19)
[2019-10-09] MEDS: MULTIVITAMIN with MINERAL TABLET. PO SCH (08:19)
[2019-10-09] MEDS: LACTOBACILLUS RHAMNOSUS GG 1 CAPSULE. PO SCH ×2 (08:19→20:12)
--- NOTE | 2019-10-09 08:50 | TX PLAN ---
Interdisciplinary Tx Plan Admission Information Sep 27, 2019 at 14:02 Legal Status (on Admission): Voluntary Allergies: Coded Allergies: Sulfa (Sulfonamide Antibiotics) (Verified Allergy, Intermediate, Anxiety, 09/26/19) Diagnoses Primary Diagnosis: Neurocognitive Disorder, Alzheimers D/O Reasons for Admission: Aggressive, Confusion/Disoriented, Poor impulse control Additional Admission Comments: According to the intake, pt has dementia and is living at home. She is being combative, throwing things and refusting to eat or take medications Problems Active Problems: Medication compliance Increased confusion Anxiety Inactive Problems: Not combative Pt Strengths/Limitations Ability for [place]: Poor Cognitive Functioning/Ability: Poor Communication Skills/Ability: Poor Financial Resources: Fair Insight/Judgement: Poor Intellectual Ability: Poor Physical Health: Fair Social Skills: Poor Stability in Family: Good Stability in School/Work: Poor Verbal Skills: Poor Discharge Criteria Discharge Criteria: Adequate arrangements @DC, Improved behavior, Improved mood/thought Other Discharge Comments: Pt would like to have pt at home; but understands that placement may be needed. Preliminary Discharge Plan Preliminary DC Plan: Home Special Precautions Fall Risk: Low Initial D/C Plan Pt may return home; unless otherwise recommended by treatment team. Identified Discharge Needs: Psychiatry or Neurology follow-up. Potential for Memory Care placement. Currently Utilized Resources Currently Utilized Resources/P: Has PCP Identified Problems/Hx/Goals Objectives/Short-Term Goals Short Term Goals: Dec. Aggression, Dec. Outbursts, Improved Social Skills, Medication Stabilization, Monitor Med Effects Short Term Goals in Patient's: Behavior and Medication Management. Decrease in behaviors so that pt may be able to discharge home. Interventions/Frequency Staff Interventions/Frequency&: Psychiatrist to see pt at least 3x per week. pipe production worker to see pt at least 2x per week. Nursing to complete 15 minute checks daily. Encourage attendance in groups/activities. May need more individual attention. History Social: NA Education: Graduated HS (12th grade) Community Follow-up will follow up with primary care physician Private duty Mental Health services Community Provider/Family Inpu: Pt wants pt home but would like for her to be less aggressive. Treatment Plan Explained Patient/Rn Mds Coordinator had this treatment plan explained to him/her as indicated by the signature below and has been given the opportunity to ask questions and make suggestions: Date: Patient/Rn Mds Coordinator Signature: Patient/Rn Mds Coordinator Decline: Yes Additional Comments Pt will plan to participate in tx team via telephone. Team Members Signatures Team Members Psychiatrist Date Nursing Date CM/SW Date Activity Therapy Date Other Date Other Date OZZYALFREDJENNIFER Oct 09, 2019 08:50
--- NOTE | 2019-10-09 10:30 | NUR ---
WEEKLY ACTIVITY THERAPY NOTE Date of Admission: 09/27/2019 Date of AT assessment: 09/30/2019 Goal aimed: to increase engagement/stimulation Initial goal: Pt. will participate in at least five individual or Activity Therapy groups per week. Weekly progress towards goal: achieved, 07/24 Group participation level: minimal Weekly highlights: interacted with battery operated cat on Sunday, hand over hand assistance to draw during pictionary on Sunday Behaviors observed: difficult to engage/processes directions, tearful/confused moments more so in the afternoons, watches groups, sits quietly Plan: no change to goal at this time. Beneficial adaptations: direct staff support, battery operated cat
--- NOTE | 2019-10-09 10:30 | NUR ---
WEEKLY NOTE: Pt , Mani, participated in treatment team via phone. Pt is eating 100% of meals and sleeping on average 7 hours. Pt does have a potential UTI and is awaiting the culture. Pt is calm, compliant and pleasantly confused. Pt is concerned about recurrent UTI's and how to prevent them if at all possible. Pt will be in at 1100 to discuss discharge plans and look at discharge in the middle of next week.
--- NOTE | 2019-10-09 11:19 | NUR ---
Patient has word salad and when asked if she knows where she is, she stated "My Hands are Sticky". She answers to her name when called. She is very confused but pleasant and med compliant when medications are put in her mouth with a spoon a few at a time. She did need to be reminded to take a drink of water to swallow the medications. She is up ad harshal in the hallway and is calm and cooperative when approached.
--- NOTE | 2019-10-09 11:30 | NUR ---
SW met with pt , Mani, to discuss discharge plans and to discuss ELOS. Mani would like to have pt home before , but would definitely want to make sure pt continues to get treated for her UTI. Pt reports that they have an appointment with Dr. Minor on 10/22 and needs an appointment scheduled for their PCP, Natacha Allen. SW discussed HH but pt was not excited about them as he felt like they did nothing for her last time. Pt for sure would like to have a visiting nurse and see if that helps. If she has behaviors at home, he will see what he can do to have her placed locally, if at all possible. SW will plan to follow up with pt the beginning of next week.
[2019-10-09 16:09] VITALS: BP 113/75
[2019-10-09] MEDS: DULoxetine HCL 60 MG CAPSULE.DR PO SCH (20:12)
[2019-10-09] MEDS: DOXYCYCLINE HYCLATE 100 MG TABLET PO SCH (20:12)
[2019-10-09] MEDS: MIRTAZAPINE 7.5 MG TABLET. PO SCH (20:12)
[2019-10-09] MEDS: DONEPEZIL HCL 10 MG TABLET PO SCH (20:12)
[2019-10-09] MEDS: ATORVASTATIN CALCIUM 20 MG TABLET PO SCH (20:13)
[2019-10-09] MEDS: MEMANTINE 10 MG TABLET. PO SCH (20:13)
--- NOTE | 2019-10-09 20:26 | PDOC ---
Exam Note: Elio Note: Please also refer to the separate dictated note~for this date of service dictated separately.~Patient seen individually. Discussed the patient with Nursing staff reviewed the chart.~Reviewed interim history and current functioning. Reviewed vital signs,~Labs/ Radiology~and current medications noted below. Continue current treatment with the changes noted in the dictated addendum note Assessment: Vital Signs/I&O: Vital Signs Date Time Temp Pulse Resp B/P (MAP) Pulse Ox O2 Delivery O2 Flow Rate FiO2 10/09/19 16:09 97.7 64 16 113/75 (88) 97 10/06/19 05:52 Room Air I & O 10/08/19 10/08/19 10/09/19 15:00 23:00 07:00 Intake Total 960 ml 360 ml Balance 960 ml 360 ml Current Medications: Meds: Current Medications Medications (Trade) Dose Ordered Sig/Nate Route PRN Reason Start Time Stop Time Status Last Admin Dose Admin Doxycycline Hyclate (Vibra-Tab) 100 mg BID PO 10/09/19 21:00 10/19/19 21:00 10/09/19 20:12 I have reviewed the current psychotropics carefully including drug interactions. Risk benefit ratio favors no change other than as noted in my dictated progress note. 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
--- NOTE | 2019-10-10 05:06 | NUR ---
Nursing note Pt pleasantly confused, wanders the unit compliant and cooperative.
[2019-10-10] MEDS: LEVOTHYROXINE 75 MCG TABLET PO SCH (05:29)
[2019-10-10 06:29] VITALS: BP 124/75
[2019-10-10] MEDS: LACTOBACILLUS RHAMNOSUS GG 1 CAPSULE. PO SCH ×2 (07:27→20:26)
[2019-10-10] MEDS: CHOLECALCIFEROL (VITAMIN D3) 1,000 UNIT TABLET PO SCH (07:27)
[2019-10-10] MEDS: DIVALPROEX 125 MG CAP.SPRINK PO SCH ×2 (07:27→14:14)
[2019-10-10] MEDS: ASPIRIN 81 MG TAB.CHEW PO SCH (07:27)
[2019-10-10] MEDS: MULTIVITAMIN with MINERAL TABLET. PO SCH (07:27)
[2019-10-10] MEDS: DOXYCYCLINE HYCLATE 100 MG TABLET PO SCH ×2 (07:28→20:25)
[2019-10-10 16:31] VITALS: BP 132/81
[2019-10-10] MEDS: MEMANTINE 10 MG TABLET. PO SCH (20:25)
[2019-10-10] MEDS: DONEPEZIL HCL 10 MG TABLET PO SCH (20:25)
[2019-10-10] MEDS: ATORVASTATIN CALCIUM 20 MG TABLET PO SCH (20:25)
[2019-10-10] MEDS: DULoxetine HCL 60 MG CAPSULE.DR PO SCH (20:26)
[2019-10-10] MEDS: MIRTAZAPINE 7.5 MG TABLET. PO SCH (20:26)
--- NOTE | 2019-10-10 20:41 | PDOC ---
Exam Note: Elio Note: Please also refer to the separate dictated note~for this date of service dictated separately.~Patient seen individually. Discussed the patient with Nursing staff reviewed the chart.~Reviewed interim history and current functioning. Reviewed vital signs,~Labs/ Radiology~and current medications noted below. Continue current treatment with the changes noted in the dictated addendum note Assessment: Vital Signs/I&O: Vital Signs Date Time Temp Pulse Resp B/P (MAP) Pulse Ox O2 Delivery O2 Flow Rate FiO2 10/10/19 16:31 98.0 86 18 132/81 (98) 98 10/06/19 05:52 Room Air I & O 10/09/19 10/09/19 10/10/19 15:00 23:00 07:00 Intake Total 720 ml 600 ml Balance 720 ml 600 ml Current Medications: Meds: Current Medications Medications (Trade) Dose Ordered Sig/Nate Route PRN Reason Start Time Stop Time Status Last Admin Dose Admin Doxycycline Hyclate (Vibra-Tab) 100 mg BID PO 10/09/19 21:00 10/19/19 21:00 10/10/19 20:25 I have reviewed the current psychotropics carefully including drug interactions. Risk benefit ratio favors no change other than as noted in my dictated progress note. 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
--- NOTE | 2019-10-10 23:28 | NUR ---
Last evening pt sat quietly in day room she is pleasant and social and took meds whole without difficulty. She is confused and only able to state name and not date of . At bedtime she went to bed without issue and has been sleeping well.
--- NOTE | 2019-10-11 02:25 | PN ---
DATE: 10/08/2019 PSYCHIATRIC PROGRESS NOTE This late entry 10/08/2019 covers elements not covered in my initial note. SUBJECTIVE: The patient was seen individually in the evening of 10/08/2019. Per XU Castrejon, the patient slept 7-1/2 hours previous night. The patient remains confused. No crying spells. No hallucinations. REVIEW OF SYSTEMS: No CV, , pulmonary, eye, ENT system symptoms on review. Reliability poor. MENTAL STATUS EXAM: Oriented to herself. Insight, judgment, recent and remote memory, attention, concentration, fund of knowledge poor, consistent with her diagnosis mentioned in my initial note. PLAN: No change from initial note. MAN Arya VILLALBA MD DR: LE/lamont JOB#: [id number] / [id number]
--- NOTE | 2019-10-11 03:01 | PN ---
DATE: 10/09/2019 PSYCHIATRIC PROGRESS NOTE This late entry 10/09/2019 covers the elements not covered in my initial note. SUBJECTIVE: I met with the patient in the evening. The patient slept 7 hours previous night. Appetite 100%. Staffed at a treatment team meeting with the entire team in the morning. The patient remains confused. Her , Mani attended the treatment team meeting in the morning. Reviewed her diagnosis, progress at length. REVIEW OF SYSTEMS: No CV, , pulmonary, eye system symptoms on review. Reliability poor. MENTAL STATUS EXAM: Oriented to herself. Insight, judgment, recent and remote memory, attention, concentration, fund of knowledge poor, consistent with her diagnosis mentioned in my initial note. PLAN: No change from initial note. CRISTINA VILLALBA MD DR: LE/lamont JOB#: [id number] / [id number]
[2019-10-11] MEDS: LEVOTHYROXINE 75 MCG TABLET PO SCH (05:51)
[2019-10-11 06:07] VITALS: BP 162/89
[2019-10-11] MEDS: DIVALPROEX 125 MG CAP.SPRINK PO SCH ×2 (08:53→13:11)
[2019-10-11] MEDS: ASPIRIN 81 MG TAB.CHEW PO SCH (08:53)
[2019-10-11] MEDS: MULTIVITAMIN with MINERAL TABLET. PO SCH (08:53)
[2019-10-11] MEDS: DOXYCYCLINE HYCLATE 100 MG TABLET PO SCH ×2 (08:53→21:18)
[2019-10-11] MEDS: LACTOBACILLUS RHAMNOSUS GG 1 CAPSULE. PO SCH ×2 (08:53→21:18)
[2019-10-11] MEDS: CHOLECALCIFEROL (VITAMIN D3) 1,000 UNIT TABLET PO SCH (08:54)
--- NOTE | 2019-10-11 11:13 | NUR ---
No agitation, no aggression, no hallucinations, no delusions. Pt is compliant with her medication and assessment. Pt is confused, calm, cooperative.
[2019-10-11 16:03] VITALS: BP 108/61
--- NOTE | 2019-10-11 20:44 | PDOC ---
Exam Note: Elio Note: Please also refer to the separate dictated note~for this date of service dictated separately.~Patient seen individually. Discussed the patient with Nursing staff reviewed the chart.~Reviewed interim history and current functioning. Reviewed vital signs,~Labs/ Radiology~and current medications noted below. Continue current treatment with the changes noted in the dictated addendum note Assessment: Vital Signs/I&O: Vital Signs Date Time Temp Pulse Resp B/P (MAP) Pulse Ox O2 Delivery O2 Flow Rate FiO2 10/11/19 16:03 97.1 75 18 108/61 (77) 95 10/11/19 06:07 Room Air I & O 10/10/19 10/10/19 10/11/19 15:00 23:00 07:00 Intake Total 480 ml 360 ml Balance 480 ml 360 ml Current Medications: I have reviewed the current psychotropics carefully including drug interactions. Risk benefit ratio favors no change other than as noted in my dictated progress note. 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
[2019-10-11] MEDS: DULoxetine HCL 60 MG CAPSULE.DR PO SCH (21:18)
[2019-10-11] MEDS: DONEPEZIL HCL 10 MG TABLET PO SCH (21:18)
[2019-10-11] MEDS: MEMANTINE 10 MG TABLET. PO SCH (21:18)
[2019-10-11] MEDS: MIRTAZAPINE 7.5 MG TABLET. PO SCH (21:18)
[2019-10-11] MEDS: ATORVASTATIN CALCIUM 20 MG TABLET PO SCH (21:18)
--- NOTE | 2019-10-12 00:53 | NUR ---
Pt was active on unit last evening she was social with others and joined conversations and tried to converse. She took meds whole without difficulty. After meds she went to bed and has been sleeping well.
[2019-10-12] MEDS: LEVOTHYROXINE 75 MCG TABLET PO SCH (05:41)
[2019-10-12 05:53] VITALS: BP 139/74
[2019-10-12] MEDS: LACTOBACILLUS RHAMNOSUS GG 1 CAPSULE. PO SCH ×2 (08:18→20:56)
[2019-10-12] MEDS: MULTIVITAMIN with MINERAL TABLET. PO SCH (08:18)
[2019-10-12] MEDS: ASPIRIN 81 MG TAB.CHEW PO SCH (08:18)
[2019-10-12] MEDS: DIVALPROEX 125 MG CAP.SPRINK PO SCH ×2 (08:18→14:06)
[2019-10-12] MEDS: DOXYCYCLINE HYCLATE 100 MG TABLET PO SCH ×2 (08:19→20:56)
[2019-10-12] MEDS: CHOLECALCIFEROL (VITAMIN D3) 1,000 UNIT TABLET PO SCH (08:20)
[2019-10-12 08:32] LABS: BASO # 0.1 x10^3/uL (0.0-0.2); BASO % 1 % (0-3); EOS # 0.1 x10^3/uL (0.0-0.7); EOS % 1 % (0-3); HEMATOCRIT 44.4 % (36.0-47.0); HEMOGLOBIN 14.6 g/dL (12.0-15.5); LYMPH # 2.6 x10^3/uL (1.0-4.8); LYMPH % 31 % (24-48); MEAN CORPUSCULAR HEMOGLOBIN 30 pg (25-35); MEAN CORPUSCULAR HGB CONC 33 g/dL (31-37); MEAN CORPUSCULAR VOLUME 91 fL (79-100); MONO # 0.6 x10^3/uL (0.0-1.1); MONO % 7 % (0-9); NEUT # 5.1 x10^3uL (1.8-7.7); NEUT % 60 % (31-73); PLATELET COUNT 261 x10^3/uL (140-400); RED BLOOD COUNT 4.87 x10^6/uL (3.50-5.40); WHITE BLOOD COUNT 8.5 x10^3/uL (4.0-11.0)
[2019-10-12 09:00] LABS: ALBUMIN 3.5 g/dL (3.4-5.0); ALBUMIN/GLOBULIN RATIO 0.9 (1.0-1.7); CALCIUM 8.9 mg/dL (8.5-10.1); CREATININE 0.8 mg/dL (0.6-1.0); GFR 71.5; TOTAL BILIRUBIN 0.4 mg/dL (0.2-1.0); TOTAL PROTEIN 7.4 g/dL (6.4-8.2)
--- NOTE | 2019-10-12 11:17 | NUR ---
Pt is confused, calm, cooperative. No agitation, no aggression, no hallucinations, no delusions. Pt is compliant with her medication and assessment.
[2019-10-12 15:42] VITALS: BP 118/72
--- NOTE | 2019-10-12 20:02 | PDOC ---
Exam Note: Elio Note: Please also refer to the separate dictated note~for this date of service dictated separately.~Patient seen individually. Discussed the patient with Nursing staff reviewed the chart.~Reviewed interim history and current functioning. Reviewed vital signs,~Labs/ Radiology~and current medications noted below. Continue current treatment with the changes noted in the dictated addendum note Assessment: Vital Signs/I&O: Vital Signs Date Time Temp Pulse Resp B/P (MAP) Pulse Ox O2 Delivery O2 Flow Rate FiO2 10/12/19 15:42 97.5 66 16 118/72 (87) 97 10/11/19 06:07 Room Air I & O 10/11/19 10/11/19 10/12/19 15:00 23:00 07:00 Intake Total 600 ml 480 ml Balance 600 ml 480 ml Labs: Laboratory Tests Test 10/12/19 07:59 White Blood Count 8.5 x10^3/uL (4.0-11.0) Red Blood Count 4.87 x10^6/uL (3.50-5.40) Hemoglobin 14.6 g/dL (12.0-15.5) Hematocrit 44.4 % (36.0-47.0) Mean Corpuscular Volume 91 fL (79-100) Mean Corpuscular Hemoglobin 30 pg (25-35) Mean Corpuscular Hemoglobin Concent 33 g/dL (31-37) Red Cell Distribution Width 14.0 % (11.5-14.5) Platelet Count 261 x10^3/uL (140-400) Neutrophils (%) (Auto) 60 % (31-73) Lymphocytes (%) (Auto) 31 % (24-48) Monocytes (%) (Auto) 7 % (0-9) Eosinophils (%) (Auto) 1 % (0-3) Basophils (%) (Auto) 1 % (0-3) Neutrophils # (Auto) 5.1 x10^3uL (1.8-7.7) Lymphocytes # (Auto) 2.6 x10^3/uL (1.0-4.8) Monocytes # (Auto) 0.6 x10^3/uL (0.0-1.1) Eosinophils # (Auto) 0.1 x10^3/uL (0.0-0.7) Basophils # (Auto) 0.1 x10^3/uL (0.0-0.2) Sodium Level 144 mmol/L (136-145) Potassium Level 4.0 mmol/L (3.5-5.1) Chloride Level 108 mmol/L (98-107) H Carbon Dioxide Level 26 mmol/L (21-32) Anion Gap 10 (6-14) Blood Urea Nitrogen 13 mg/dL (7-20) Creatinine 0.8 mg/dL (0.6-1.0) Estimated GFR (Cockcroft-Gault) 71.5 BUN/Creatinine Ratio 16 (6-20) Glucose Level 95 mg/dL (70-99) Calcium Level 8.9 mg/dL (8.5-10.1) Total Bilirubin 0.4 mg/dL (0.2-1.0) Aspartate Amino Transferase (AST) 24 U/L (15-37) Alanine Aminotransferase (ALT) 22 U/L (14-59) Alkaline Phosphatase 109 U/L (46-116) Total Protein 7.4 g/dL (6.4-8.2) Albumin 3.5 g/dL (3.4-5.0) Albumin/Globulin Ratio 0.9 (1.0-1.7) L Current Medications: I have reviewed the current psychotropics carefully including drug interactions. Risk benefit ratio favors no change other than as noted in my dictated progress note. 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
[2019-10-12] MEDS: MIRTAZAPINE 7.5 MG TABLET. PO SCH (20:56)
[2019-10-12] MEDS: MEMANTINE 10 MG TABLET. PO SCH (20:56)
[2019-10-12] MEDS: DULoxetine HCL 60 MG CAPSULE.DR PO SCH (20:57)
[2019-10-12] MEDS: DONEPEZIL HCL 10 MG TABLET PO SCH (20:57)
[2019-10-12] MEDS: ATORVASTATIN CALCIUM 20 MG TABLET PO SCH (20:57)
--- NOTE | 2019-10-12 21:31 | PN ---
DATE: 10/10/2019 PSYCHIATRIC PROGRESS NOTE This late entry 10/10/2019 covers elements not covered in my initial note. SUBJECTIVE: I met with the patient in the evening. Per Toribio RN, the patient slept 9 hours previous night. She has been confused, wandering, disorganized, but not aggressive. REVIEW OF SYSTEMS: No CV, , pulmonary, eye, ENT system symptoms on review. Reliability poor. MENTAL STATUS EXAMINATION: Oriented to herself. Insight, judgment, recent and remote memory, attention, concentration, fund of knowledge poor, consistent with her diagnosis mentioned in my initial note. PLAN: No change from initial note. MAN Arya VILLALBA MD DR: LE/lamont JOB#: [id number] / [id number]
--- NOTE | 2019-10-13 01:35 | NUR ---
Nsg Note: Patient in day room at time of medication administration and assessments. Patient was calm, compliant, and cooperative and pleasantly confused. Patient went to sleep shortly after taking medications. No other notable behaviors.
[2019-10-13 06:19] VITALS: BP 115/73
[2019-10-13] MEDS: LEVOTHYROXINE 75 MCG TABLET PO SCH (06:29)
[2019-10-13] MEDS: DIVALPROEX 125 MG CAP.SPRINK PO SCH ×2 (09:02→13:15)
[2019-10-13] MEDS: CHOLECALCIFEROL (VITAMIN D3) 1,000 UNIT TABLET PO SCH (09:02)
[2019-10-13] MEDS: MULTIVITAMIN with MINERAL TABLET. PO SCH (09:02)
[2019-10-13] MEDS: DOXYCYCLINE HYCLATE 100 MG TABLET PO SCH ×2 (09:02→20:38)
[2019-10-13] MEDS: ASPIRIN 81 MG TAB.CHEW PO SCH (09:02)
[2019-10-13] MEDS: LACTOBACILLUS RHAMNOSUS GG 1 CAPSULE. PO SCH ×2 (09:02→20:38)
--- NOTE | 2019-10-13 10:40 | NUR ---
Pt is confused, calm, cooperative. No aggression, no hallucinations, no delusions. Pt is compliant with her medication and assessment. Pt was irritable during breakfast stating to BRUSH HAND "youre a dumb bitch." PRN zyprexa zydis given with am medication."
[2019-10-13 15:57] VITALS: BP 109/68
--- NOTE | 2019-10-13 18:53 | PN ---
DATE: 10/11/2019 PSYCHIATRIC PROGRESS NOTE This late entry 10/11/2019 covers the elements not covered in my initial note. SUBJECTIVE: I met with the patient in the evening. The patient slept 8 hours previous night. She remains confused, pleasant, redirectable. REVIEW OF SYSTEMS: No CV, , pulmonary, eye, ENT system symptoms on review. Reliability poor. MENTAL STATUS EXAM: Oriented to herself. Insight, judgment, recent and remote memory, attention, concentration, fund of knowledge poor, consistent with her diagnosis mentioned in my initial note. PLAN: No change from initial note. MAN Arya VILLALBA MD DR: LE/lamont JOB#: [id number] / [id number]
--- NOTE | 2019-10-13 19:13 | PN ---
DATE: 10/12/2019 PSYCHIATRIC PROGRESS NOTE This late entry, 10/12/2019, covers the elements not covered in my initial note. SUBJECTIVE: I met with the patient in the evening. The patient slept 6-1/2 hours previous night. She remains confused, but pleasant, smiling as I met with her, oblivious of her surroundings, not aggressive. REVIEW OF SYSTEMS: No CV, , pulmonary, eye, or ENT system symptoms on review. Reliability poor. MENTAL STATUS EXAM: Oriented to herself. Insight, judgment, recent and remote memory, attention, concentration, and fund of knowledge are poor, consistent with her diagnosis mentioned in my initial note. PLAN: No change from initial note. MAN Arya VILLALBA MD DR: LE/lamont JOB#: [id number] / [id number]
--- NOTE | 2019-10-13 19:55 | PDOC ---
Exam Note: Elio Note: Please also refer to the separate dictated note~for this date of service dictated separately.~Patient seen individually. Discussed the patient with Nursing staff reviewed the chart.~Reviewed interim history and current functioning. Reviewed vital signs,~Labs/ Radiology~and current medications noted below. Continue current treatment with the changes noted in the dictated addendum note Assessment: Vital Signs/I&O: Vital Signs Date Time Temp Pulse Resp B/P (MAP) Pulse Ox O2 Delivery O2 Flow Rate FiO2 10/13/19 15:57 97.4 70 16 109/68 (82) 96 10/13/19 06:19 Room Air I & O 10/12/19 10/12/19 10/13/19 14:59 22:59 06:59 Intake Total 600 ml 480 ml Balance 600 ml 480 ml Current Medications: I have reviewed the current psychotropics carefully including drug interactions. Risk benefit ratio favors no change other than as noted in my dictated progress note. 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
[2019-10-13] MEDS: ATORVASTATIN CALCIUM 20 MG TABLET PO SCH (20:37)
[2019-10-13] MEDS: MEMANTINE 10 MG TABLET. PO SCH (20:38)
[2019-10-13] MEDS: MIRTAZAPINE 7.5 MG TABLET. PO SCH (20:38)
[2019-10-13] MEDS: DONEPEZIL HCL 10 MG TABLET PO SCH (20:38)
[2019-10-13] MEDS: DULoxetine HCL 60 MG CAPSULE.DR PO SCH (20:38)
--- NOTE | 2019-10-14 01:01 | NUR ---
NSg Note: Patient in day room at time of medication administration and assessments. Patient calm, cooperative and and compliant with all cares. Patient pleasantly confused. No other notable behaviors at this time.
[2019-10-14] MEDS: LEVOTHYROXINE 75 MCG TABLET PO SCH (05:47)
[2019-10-14 06:29] VITALS: BP 130/83
[2019-10-14] MEDS: LACTOBACILLUS RHAMNOSUS GG 1 CAPSULE. PO SCH ×2 (08:12→20:34)
[2019-10-14] MEDS: ASPIRIN 81 MG TAB.CHEW PO SCH (08:12)
[2019-10-14] MEDS: DOXYCYCLINE HYCLATE 100 MG TABLET PO SCH ×2 (08:12→20:35)
[2019-10-14] MEDS: DIVALPROEX 125 MG CAP.SPRINK PO SCH ×2 (08:12→15:29)
[2019-10-14] MEDS: CHOLECALCIFEROL (VITAMIN D3) 1,000 UNIT TABLET PO SCH (08:12)
[2019-10-14] MEDS: MULTIVITAMIN with MINERAL TABLET. PO SCH (08:13)
--- NOTE | 2019-10-14 11:51 | NUR ---
WEEKLY ACTIVITY THERAPY NOTE- Based on four days of programming Date of Admission: 09/27/2019 Date of AT assessment: 09/30/2019 Goal aimed: to increase engagement/stimulation Initial goal: Pt. will participate in at least five individual or Activity Therapy groups per week. Weekly progress towards goal: 3/5 Group participation level: varied Weekly highlights: correctly guessed one trivia question on Behaviors observed: similar to last week- difficult to engage/processes directions, decreased tearful/confused moments, watches groups, sits quietly Plan: no change to goal Beneficial adaptations: direct staff support, battery operated cat
--- NOTE | 2019-10-14 15:01 | NUR ---
This RN called in Depakote Sprinkles 125mg po bid to be given at 09,14 #60 x5 refills Remeron 7.5mg po qhs #30 x 5 refills Zyprexa 2.5mg po q2 hours PRN agitation/anxiety #90 x5 refills Doxycycline 100mg po bid #9 no refills. To [facility] in [place] per patients husbands request.
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
[2019-10-14 16:12] VITALS: BP 125/64
--- NOTE | 2019-10-14 17:05 | NUR ---
[facility] Social Work Discharge Planning Form Patient Name JOCELIN VERGARA Admit Date: 09/27/19 DISCHARGE PLAN Discharge Destination: Home with Care Assessment: N/A Level II Assessment: N/A Transportation: Pt will be picking pt up around 1100. Special Instructions/Notes: DISCHARGE TO HOME: Address: [address]; [place] [address] Responsible Democrat: Pt , Mani Vergara Pharmacy: [email or web address] Contact Information: Primary Care Follow Up: Nat[facility] Contact Information: [address], [place] [address] Fax: Appointment:10/20/19 @ 11:15 Neurologist: Dr. Minor Contact Information: [address] [facility] [address] [address] Appointment: 10/22/19 @ 1130
[2019-10-14] MEDS ORDERED: ACET325T9 PO (18:29)
[2019-10-14] MEDS ORDERED: DIVA125C2 PO (18:31)
[2019-10-14] MEDS ORDERED: DOXY100T PO (18:32)
[2019-10-14] MEDS ORDERED: LACT1CAP21 PO (18:34)
[2019-10-14] MEDS ORDERED: MAG30ORA2 PO (18:36)
[2019-10-14] MEDS ORDERED: MAGN2400 PO (18:36)
[2019-10-14] MEDS ORDERED: METH28OI2 TP (18:37)
[2019-10-14] MEDS ORDERED: MIRT7.5T8 PO (18:38)
--- NOTE | 2019-10-14 19:58 | PDOC ---
Exam Note: Elio Note: Please also refer to the separate dictated note~for this date of service dictated separately.~Patient seen individually. Discussed the patient with Nursing staff reviewed the chart.~Reviewed interim history and current functioning. Reviewed vital signs,~Labs/ Radiology~and current medications noted below. Continue current treatment with the changes noted in the dictated addendum note Assessment: Vital Signs/I&O: Vital Signs Date Time Temp Pulse Resp B/P (MAP) Pulse Ox O2 Delivery O2 Flow Rate FiO2 10/14/19 16:12 97.6 73 18 125/64 (84) 96 Room Air I & O 10/13/19 10/13/19 10/14/19 15:00 23:00 07:00 Intake Total 480 ml 60 ml 120 ml Balance 480 ml 60 ml 120 ml Current Medications: I have reviewed the current psychotropics carefully including drug interactions. Risk benefit ratio favors no change other than as noted in my dictated progress note. 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
[2019-10-14] MEDS: ATORVASTATIN CALCIUM 20 MG TABLET PO SCH (20:34)
[2019-10-14] MEDS: MIRTAZAPINE 7.5 MG TABLET. PO SCH (20:35)
[2019-10-14] MEDS: MEMANTINE 10 MG TABLET. PO SCH (20:35)
[2019-10-14] MEDS: DULoxetine HCL 60 MG CAPSULE.DR PO SCH (20:35)
[2019-10-14] MEDS: DONEPEZIL HCL 10 MG TABLET PO SCH (20:35)
--- NOTE | 2019-10-14 23:39 | NUR ---
Nsg Note: Patient was in the day room at time of medication administration and assessments. Patient was calm, cooperative and compliant with cares pleasantly confused. Patient went to sleep shortly after. No other notable behaviors at this time.
--- NOTE | 2019-10-14 23:52 | PN ---
DATE: 10/13/2019 PSYCHIATRIC PROGRESS NOTE This late entry, 10/13, covers the elements not covered in my initial note. SUBJECTIVE: I met with the patient in the evening. Per nursing report by Reanna RN, the patient slept 7-1/4 hours previous night. She remains confused, irritable in the morning, calling the nursing staff dumb and the B word towards nursing care partner. She received Zyprexa Zydis p.r.n. then did better. REVIEW OF SYSTEMS: No CV, , pulmonary, eye, ENT systems symptoms on review. Reliability poor. MENTAL STATUS EXAM: Oriented to herself. Insight, judgment, recent and remote memory, attention, concentration, fund of knowledge poor, consistent with her diagnosis. She was very pleasant with me as I met with her in the evening. LABORATORY DATA: Reviewed. IMPRESSION: Major neurocognitive disorder, Alzheimer vascular with delusion, depression, behavioral disturbance; anxiety disorder, unspecified; impulse control disorder, unspecified. Rest unchanged. PLAN: Continue current psychotropics. May need to adjust Depakote further. Last level was 35 subtherapeutic, but she was doing better on Depakote Sprinkles 125 b.i.d. Despite being subtherapeutic, I opted not to increase it to reduce the potential side effects, but we will have to reassess if aggression persists, agitation persists. MAN Arya VILLALBA MD DR: LE/lamont JOB#: [id number] / [id number]
[2019-10-15] MEDS: LEVOTHYROXINE 75 MCG TABLET PO SCH (05:38)
[2019-10-15 06:40] VITALS: BP 117/75
[2019-10-15] MEDS: DOXYCYCLINE HYCLATE 100 MG TABLET PO SCH (08:15)
[2019-10-15] MEDS: DIVALPROEX 125 MG CAP.SPRINK PO SCH (08:16)
[2019-10-15] MEDS: CHOLECALCIFEROL (VITAMIN D3) 1,000 UNIT TABLET PO SCH (08:16)
[2019-10-15] MEDS: MULTIVITAMIN with MINERAL TABLET. PO SCH (08:16)
[2019-10-15] MEDS: ASPIRIN 81 MG TAB.CHEW PO SCH (08:16)
[2019-10-15] MEDS: LACTOBACILLUS RHAMNOSUS GG 1 CAPSULE. PO SCH (08:16)
--- NOTE | 2019-10-15 10:00 | NUR ---
Approahed patient in the [facility] about 08:25 to provide morning medications. Patient was disorganized, restless, and wandering. She threw the pills on the floor and wandered away. Additional pills pulled per [facility], patient given time to calm down. When approached with these meds crushed in applesauce, patient was compliant and pleasantly confused. Will continue to monitor.
--- NOTE | 2019-10-15 11:15 | NUR ---
Transition Record was faxed to follow-up provider with the following elements: Reason for admission, procedures, tests, principal diagnosis, pending studies, patient instructions, 11/06 contact information for unit, phone number to obtain pending test results, plan for follow-up care, physician follow-up, advanced directive information, and medication list with dose, duration and instructions. This information was included in the following documents: History and physical, lab results, study results, progress notes, social work planning form, DC instruction form, patient visit summary, and medication reconciliation form. Date & time record faxed: 10:55 15 October 2019 Record faxed to: [facility]; Dr. Minor Record discussed with/ report given to: Discharge education discussed with patient's /DPOA to include medication changes and frequencies, follow up appointments, and number to call with any concerns or questions.
--- NOTE | 2019-10-15 17:47 | DS ---
DATE OF DISCHARGE: 10/15/2019 PSYCHIATRIC DISCHARGE NOTE This note covers elements not covered in my initial note. REASON FOR ADMISSION: Please refer to the admission history for details. Briefly, the patient is a 69-year-old female, who was transferred to us from the ICU after she is medically stabilized. She has a history of progressive dementia and the initial referral to us was on account of marked aggression, throwing stuff, refusing food and meds, unmanageable. SIGNIFICANT FINDINGS AND CLINICAL COURSE: Following admission, the patient was seen individually by myself from a psychiatric standpoint, medical followup with Dr. Willis. She remained confused. Adjustments were made in her psychotropics and she seemed to respond to a combination of Cymbalta 60 mg at bedtime, Depakote Sprinkle 125 mg b.i.d. Level was subtherapeutic at 35, but clinically adequate as she was doing much better. She is also on Remeron 7.5 mg at bedtime, Aricept 10 mg at bedtime, Namenda 10 mg at bedtime. The latter could be possibly tapered and discontinued as part of outpatient followup and I discussed this with the . She did also have a UTI, treated, on doxycycline until 10/20/2019. REVIEW OF SYSTEMS: Prior to discharge on 10/15/2019, No CV, , pulmonary, eye, ENT system symptoms on review. Reliability poor. MENTAL STATUS EXAM: Oriented to herself. Insight, judgment, recent and remote memory, attention, concentration, fund of knowledge poor, consistent with her diagnosis. FINAL DIAGNOSES: Major neurocognitive disorder; Alzheimer vascular with delusion, depression, behavioral disturbance; anxiety disorder, unspecified; impulse control disorder, unspecified; urinary tract infection. Rest unchanged from admission. DISCHARGE MEDICATIONS: Please refer to the MRAD. DISCHARGE INSTRUCTIONS: Outpatient psychiatric and medical followup as arranged prior to discharge. CRISTINA VILLALBA MD DR: LE/lamont JOB#: [id number] / [id number]
--- NOTE | 2019-10-15 19:46 | PDOC ---
Exam Note: Eloi Note: Please also refer to the separate dictated note~for this date of service dictated separately.~Patient seen individually. Discussed the patient with Nursing staff reviewed the chart.~Reviewed interim history and current functioning. Reviewed vital signs,~Labs/ Radiology~and current medications noted below. Continue current treatment with the changes noted in the dictated addendum note Assessment: Vital Signs/I&O: Vital Signs Date Time Temp Pulse Resp B/P (MAP) Pulse Ox O2 Delivery O2 Flow Rate FiO2 10/15/19 06:40 96.9 65 20 117/75 (89) 95 10/14/19 16:12 Room Air I & O 10/14/19 10/14/19 10/15/19 15:00 23:00 07:00 Intake Total 840 ml 360 ml Balance 840 ml 360 ml Current Medications: I have reviewed the current psychotropics carefully including drug interactions. Risk benefit ratio favors no change other than as noted in my dictated progress note. 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
--- NOTE | 2019-10-15 21:30 | PN ---
DATE: 10/14/2019 PSYCHIATRIC PROGRESS NOTE This late entry 10/14/2019 covers elements not covered in my initial note. SUBJECTIVE: I met with the patient evening of 10/14/2019 and was staffed at treatment team meeting with the entire team in the morning and the patient's attended the treatment team meeting. She is sleeping 8 hours. Appetite 100%, does have a UTI and is on antibiotics, remains confused but pleasant. Day before she was little agitated but more redirectable. Did attend some groups in the morning. REVIEW OF SYSTEMS: No CV, , pulmonary, eye, ENT system symptoms on review. Reliability poor, pleasant, smiling as I met with her. MENTAL STATUS EXAM: Insight, judgment, recent and remote memory, attention, concentration, fund of knowledge poor, consistent with her diagnosis mentioned in my initial note. PLAN: No change from initial note. Discharge home with 10/15/2019. This was late entry for date of service 10/14/2019. CRISTINA VILLALBA MD DR: LE/lamont JOB#: [id number] / [id number]
== END 2019-10-15 11:15 | disposition home or self-care (01) | DRG 57 ==
LOC: GEROPSY 14:02
PROVIDERS: ADMIT Psychiatry & Neurology Psychiatry; ATTEND Psychiatry & Neurology Psychiatry
DX: G30.9 Alzheimer's disease, unspecified (principal); F01.51 Vascular dementia, unspecified severity, with behavioral disturbance; F02.81 Dementia in other diseases classified elsewhere, unspecified severity, with behavioral disturbance; N39.0 Urinary tract infection, site not specified; E46 Unspecified protein-calorie malnutrition; F05 Delirium due to known physiological condition; F32.9 Major depressive disorder, single episode, unspecified; F41.9 Anxiety disorder, unspecified; F63.9 Impulse disorder, unspecified; F22 Delusional disorders; E03.9 Hypothyroidism, unspecified; E78.5 Hyperlipidemia, unspecified; I10 Essential (primary) hypertension; I25.10 Atherosclerotic heart disease of native coronary artery without angina pectoris; Z79.899 Other long term (current) drug therapy; Z87.891 Personal history of nicotine dependence; Z90.49 Acquired absence of other specified parts of digestive tract; Z88.2 Allergy status to sulfonamides; Z91.83 Wandering in diseases classified elsewhere
CPT/HCPCS: 36415; 80053; 80061; 80164; 81001; 82306; 82607; 83036; 83540; 83550; 83735; 84436; 84443; 84480; 85007; 85025; 86592; 87086; 93005; 97110; 97116

== ENCOUNTER 2019-10-27 11:27 | Emergency (ER) | payer MEDICARE ==
[~2019-10-27] VITALS: Ht 160 cm; Wt 66.2 kg
[~2019-10-27 11:27] MED LIST changes: +ACET325T9 PO; +DIVA125C2 PO; +DONE10TA61 PO; +DOXY100T PO; +LACT1CAP21 PO; +MAG30ORA2 PO; +MAGN2400 PO; +MEMA10TA PO; +METH28OI2 TP; +MIRT7.5T8 PO; +OLAN5TAB7 PO
[2019-10-27] MEDS ORDERED: IV NORMAL SALINE 1,000ML 1,000 ML IV SCH (11:45)
--- NOTE | 2019-10-27 11:50 | PHYS DOC ---
Past History Past Medical History: Dementia, Hypothyroid, UTI Past Surgical History: No Surgical History Smoking: Quit Greater Than 1 Year Alcohol Use: None Drug Use: None Adult General Chief Complaint Chief Complaint: URINARY FREQUENCY HPI HPI Patient is a 69-year-old female, with advanced dementia, who presents to the emergency department for evaluation. Her states that she has been somewhat more lethargic for the past several days, then she normally is. He states that she will not react like this when she gets urinary tract infections. She was treated for one about a month ago, although he is uncertain of the antibiotic. She was also recently hospitalized at the [facility] here. The patient does not have any pain. She normally is ambulatory and ambulated overnight at home, but she has not been walking this morning according to her . The patient's states that 2 nights ago she rolled off the couch and he found on the floor in the middle of the night, but other than that, she has not had any other recent falls or injuries. There are no alleviating or exacerbating factors to her symptoms. Review of charts reveals she was treated with doxycycline, and her UA showed sensitivity to it. Review of Systems Review of Systems Unable to obtain review of systems, secondary to underlying dementia Allergies Allergies Allergies Coded Allergies Type Severity Reaction Last Updated Verified Sulfa (Sulfonamide Antibiotics) Allergy Intermediate Anxiety 09/26/19 Yes Physical Exam Physical Exam PHYSICAL EXAM: CONSTITUTIONAL: Well developed, well nourished HEAD: normocephalic, atraumatic EENT: PERRL, EOMI. Conjunctivae normal color, sclerae non-icteric; moist mucous membranes. NECK: Supple, non-tender; no meningismus.There is full, painless range of motion of the cervical spine, without any focal bony midline tenderness to palpation. LUNGS: Lungs CTA, breathing even and unlabored. Normal air movement. HEART: Regular rate and rhythm, no murmur CHEST: No deformity; non-tender ABDOMEN: The abdomen is soft, and non-tender, no masses or bruits. EXTREM: Normal ROM; no deformity, no calf tenderness. Normal pulses palpable in all extremities. There is no pedal edema. SKIN: No rash; no diaphoresis NEURO: Alert; impaired cognition secondary to dementia, with content deficit in the patient's speech without any definite aphasia or dysarthria.; CN's grossly intact; strength grossly intact without focal deficit. BACK: No CVA TTP. Current Patient Data Vital Signs Vital Signs Date Time Temp Pulse Resp B/P (MAP) Pulse Ox O2 Delivery O2 Flow Rate FiO2 10/27/19 11:36 98.4 69 14 97 Room Air EKG EKG [] Radiology/Procedures Radiology/Procedures PROCEDURE: CT HEAD WO CONTRAST CT HEAD WO CONTRAST History: Altered mental status. Comparison: June 29, 2018 Technique: Noncontrast CT imaging was performed of the head. Exposure: One or more of the following individualized dose reduction techniques were utilized for this examination: 1. Automated exposure control 2. Adjustment of the mA and/or kV according to patient size 3. Use of iterative reconstruction technique. Findings: Heterogeneous left cerebral convexity subdural hematoma measures 2.4 cm in maximal thickness. Mild adjacent mass effect and mass effect on the left lateral ventricle. 4 mm midline shift to the right. No hydrocephalus. Mild brain parenchymal volume loss. Imaged orbits are unremarkable. Imaged paranasal sinuses and mastoid air cells are clear. TMJ arthropathy. Impression: 1. Acute left cerebral convexity subdural hematoma with heterogeneous appearance. Recommend short interval follow-up to ensure stability. 2. Mild rightward midline shift. [] PROCEDURE: PORTABLE CHEST 1V PORTABLE CHEST 1V History: Altered mental status Comparison: September 26, 2019 Findings: No consolidation or pleural effusion. Normal heart size. No pneumothorax. Left upper lung calcified granuloma. Impression: 1. No acute cardiopulmonary process. Low lung volumes. Course & Med Decision Making Course & Med Decision Making Pertinent Labs and Imaging studies reviewed. (See chart for details) [] 12:45 PM: I spoke with Merle, nurse practitioner for Dr. Hall, neurosurgery at [facility] who will review the patient's images. I am awaiting a callback from the hospitalist, Dr. Campbell, to transfer the patient. 1:40 PM: Dr. Campbell has accepted the patient in transfer. CRITICAL CARE TIME: 45 Minutes, excluding any procedures and care of other pa tients. Dragon Disclaimer Dragon Disclaimer This electronic medical record was generated, in whole or in part, using a voice recognition dictation system. Departure Departure: Impression: Primary Impression: Subdural hematoma Additional Impression: Dementia Disposition: 02 XFER [facility]-TRM HOSP ([facility]) Condition: STABLE Referrals: FLETCHER CARLSON (PCP) Problem Qualifiers DEBBIE MENON MD Oct 27, 2019 11:50
[2019-10-27 12:28] LABS: BASO # 0.1 x10^3/uL (0.0-0.2); BASO % 1 % (0-3); EOS # 0.1 x10^3/uL (0.0-0.7); EOS % 1 % (0-3); HEMATOCRIT 44.6 % (36.0-47.0); HEMOGLOBIN 14.5 g/dL (12.0-15.5); LYMPH # 2.3 x10^3/uL (1.0-4.8); LYMPH % 28 % (24-48); MEAN CORPUSCULAR HEMOGLOBIN 30 pg (25-35); MEAN CORPUSCULAR HGB CONC 33 g/dL (31-37); MEAN CORPUSCULAR VOLUME 91 fL (79-100); MONO # 0.8 x10^3/uL (0.0-1.1); MONO % 9 % (0-9); NEUT % 61 % (31-73); PLATELET COUNT 223 x10^3/uL (140-400); RED BLOOD COUNT 4.92 x10^6/uL (3.50-5.40); RED CELL DISTRIBUTION WIDTH 14.5 % (11.5-14.5); WHITE BLOOD COUNT 8.3 x10^3/uL (4.0-11.0)
--- NOTE | 2019-10-27 12:44 | RAD ---
CT HEAD WO CONTRAST History: Altered mental status. Comparison: June 29, 2018 Technique: Noncontrast CT imaging was performed of the head. Exposure: One or more of the following individualized dose reduction techniques were utilized for this examination: 1. Automated exposure control 2. Adjustment of the mA and/or kV according to patient size 3. Use of iterative reconstruction technique. Findings: Heterogeneous left cerebral convexity subdural hematoma measures 2.4 cm in maximal thickness. Mild adjacent mass effect and mass effect on the left lateral ventricle. 4 mm midline shift to the right. No hydrocephalus. Mild brain parenchymal volume loss. Imaged orbits are unremarkable. Imaged paranasal sinuses and mastoid air cells are clear. TMJ arthropathy. Impression: 1. Acute left cerebral convexity subdural hematoma with heterogeneous appearance. Recommend short interval follow-up to ensure stability. 2. Mild rightward midline shift. FOR INTERNAL CODING PURPOSES Critical result: Findings discussed with DEBBIE MENON at 10/27/2019 12:36 PM. RESULT CODE: (C) Electronically signed by: Jose Armando Booth DO (10/27/2019 12:41 PM) [id number]
--- NOTE | 2019-10-27 12:45 | RAD ---
PORTABLE CHEST 1V History: Altered mental status Comparison: September 26, 2019 Findings: No consolidation or pleural effusion. Normal heart size. No pneumothorax. Left upper lung calcified granuloma. Impression: 1. No acute cardiopulmonary process. Low lung volumes. Electronically signed by: Jose Armando Booth DO (10/27/2019 12:42 PM) [id number]
[2019-10-27 12:57] LABS: ALBUMIN 3.6 g/dL (3.4-5.0); ALBUMIN/GLOBULIN RATIO 0.9 (1.0-1.7); CALCIUM 9.3 mg/dL (8.5-10.1); CREATININE 0.8 mg/dL (0.6-1.0); GFR 71.5; MAGNESIUM 2.3 mg/dL (1.8-2.4); POTASSIUM 3.7 mmol/L (3.5-5.1); TOTAL BILIRUBIN 0.3 mg/dL (0.2-1.0); TOTAL PROTEIN 7.5 g/dL (6.4-8.2)
[2019-10-27 13:04] LABS: BACTERIA,URINE 0 /HPF (0-FEW); BILIRUBIN,URINE NEG (NEG); CLARITY,URINE CLEAR; COLOR,URINE YELLOW; GLUCOSE,URINE NEG (NEG); NITRITE,URINE NEG (NEG); RBC,URINE OCC /HPF (0-2); SQUAMOUS EPITHELIAL CELL,UR OCC /LPF; UROBILINOGEN,URINE 0.2 mg/dL (0.2 mg/dL); WBC,URINE OCC /HPF (0-4)
[2019-10-27 13:23] LABS: VAL ACID 35 mcg/mL (50-100)
[2019-10-27 14:30] VITALS: BP 110/52
== END 2019-10-27 14:40 | disposition short-term general hospital (02) ==
LOC: ER 11:27
DX: S06.5X0A Traumatic subdural hemorrhage without loss of consciousness, initial encounter (principal); F03.90 Unspecified dementia, unspecified severity, without behavioral disturbance, psychotic disturbance, mood disturbance, and anxiety; E03.9 Hypothyroidism, unspecified; Z87.440 Personal history of urinary (tract) infections; Z87.891 Personal history of nicotine dependence; Z88.2 Allergy status to sulfonamides; W08.XXXA Fall from other furniture, initial encounter; Y93.89 Activity, other specified; Y92.89 Other specified places as the place of occurrence of the external cause; Y99.8 Other external cause status
CPT/HCPCS: 36415; 70450; 71045; 80053; 80164; 81001; 83605; 83735; 83880; 84484; 85025; 85610; 85730; 99291; P9612; J7030